=== PATIENT | male | born 1970 | race Two or more races ===

== ENCOUNTER 2020-03-23 18:40 | Inpatient (IN) | payer OTHER ==
[~2020-03-23] VITALS: Ht 188 cm; Wt 92.0 kg
[2020-03-23 19:33] VITALS: BP 138/92
[2020-03-23] MEDS: HYDROmorphone 2 MG/ML VIAL IV PRN (19:48)
[2020-03-23] MEDS: IV NORMAL SALINE 1000ML BAG 1,000 ML IV SCH (20:00)
[2020-03-23] MEDS: PANTOPRAZOLE IV PUSH 40 MG VIAL. IVP SCH (20:01)
[2020-03-23] MEDS: PIPERACILLIN/TAZOBACTAM 3.375 GM in IV NORMAL SALINE 50ML 50 ML IV SCH (20:02)
[2020-03-23] MEDS: DOCUSATE SODIUM 100 MG CAPSULE. PO SCH (21:00)
[2020-03-23 22:02] VITALS: BP 134/75
[2020-03-24] MEDS: HYDROmorphone 2 MG/ML VIAL IV PRN ×7 (00:22→23:07)
[2020-03-24] MEDS: PIPERACILLIN/TAZOBACTAM 3.375 GM in IV NORMAL SALINE 50ML 50 ML IV SCH ×4 (00:26→19:02)
[2020-03-24 02:05] VITALS: BP 138/76
[2020-03-24] MEDS: IV NORMAL SALINE 1000ML BAG 1,000 ML IV SCH (05:34)
[2020-03-24 06:04] LABS: BASO % 0 % (0-3); EOS # 0.1 x10^3/uL (0.0-0.7); EOS % 1 % (0-3); HEMATOCRIT 35.8 % (39.0-53.0); HEMOGLOBIN 12.3 g/dL (13.0-17.5); LYMPH # 0.7 x10^3/uL (1.0-4.8); LYMPH % 6 % (24-48); MEAN CORPUSCULAR HEMOGLOBIN 32 pg (25-35); MEAN CORPUSCULAR HGB CONC 34 g/dL (31-37); MEAN CORPUSCULAR VOLUME 93 fL (79-100); MONO # 1.3 x10^3/uL (0.0-1.1); MONO % 11 % (0-9); NEUT # 9.4 x10^3/uL (1.8-7.7); NEUT % 82 % (31-73); PLATELET COUNT 164 x10^3/uL (140-400); RED BLOOD COUNT 3.83 x10^6/uL (4.30-5.70); RED CELL DISTRIBUTION WIDTH 14.2 % (11.5-14.5); WHITE BLOOD COUNT 11.4 x10^3/uL (4.0-11.0)
[2020-03-24 06:08] LABS: PROTHROMBIN TIME PATIENT 19.1 SEC (11.7-14.0)
[2020-03-24 06:12] VITALS: BP 138/79
[2020-03-24 06:26] LABS: ALBUMIN 1.9 g/dL (3.4-5.0); ALBUMIN/GLOBULIN RATIO 0.5 (1.0-1.7); CALCIUM 7.8 mg/dL (8.5-10.1); CREATININE 1.1 mg/dL (0.7-1.3); GFR 71.1; POTASSIUM 3.2 mmol/L (3.5-5.1); TOTAL BILIRUBIN 1.3 mg/dL (0.2-1.0); TOTAL PROTEIN 5.5 g/dL (6.4-8.2)
[2020-03-24] MEDS: POLYETHYLENE GLYCOL 3350 17 GM PACKET. PO SCH (09:00)
[2020-03-24] MEDS: DOCUSATE SODIUM 100 MG CAPSULE. PO SCH ×2 (09:00→21:32)
--- NOTE | 2020-03-24 09:24 | NUR ---
SS following for discharge planning. SS reviewed pt chart and discussed with pt RN. Pt is from home with spouse and is currently on room air. Pt on IV Zosyn. GI consulted. SS will continue to follow for discharge planning.
[2020-03-24] MEDS: PANTOPRAZOLE IV PUSH 40 MG VIAL. IVP SCH ×2 (09:48→19:01)
[2020-03-24] MEDS: POTASSIUM CL 40MEQ IN 0.9%NACL 1,000 ML IV SCH ×2 (09:49→21:33)
--- NOTE | 2020-03-24 09:57 | PDOC2 ---
ELMER CRAWFORD PAPER REWINDER OPERATOR 03/24/20 0957: CONSULT Date of Consult Date of Consult DATE: 03/24/20 TIME: 09:47 Reason for Consult Reason for Consult: gs pancreatitis Referring Physician Referring Physician: Dr Conley Identification/Chief Complaint Chief Complaint abdominal pain Source Source: Chart review, Patient History of Present Illness Reason for Visit: Over a week of abdominal pain, epigastric. Now radiating to back. Some nausea. No constipation, few small loose stools. No hx of pancreatitis, no hx of heavy alcohol use He does still report moderate pain to epigastric with radiation to his back. Repeat CT 03/22 prior to Tx from [facility] showed continued, slightly worse pancreatitis findings Past Medical History Past Medical History resolved acute Kidney Injury in Oct Cardiovascular: Hyperlipidemia Past Surgical History Past Surgical History: No pertinent history Family History Family History: Other (noncontributory to current illness ) Social History No ALCOHOL: none Drugs: None Lives: with Family Current Medications Current Medications Current Medications Sodium Chloride 1,000 ml @ 100 mls/hr Q10H IV Last administered on 03/24/20at 05:34; Start 03/23/20 at 20:00; Stop 03/24/20 at 09:13; Status DC Piperacillin Sod/ Tazobactam Sod 3.375 gm/Sodium Chloride 50 ml @ 100 mls/hr Q6HRS IV Last administered on 03/24/20at 05:33; Start 03/23/20 at 20:00 Docusate Sodium (Colace) 100 mg BID PO ; Start 03/23/20 at 21:00 Hydromorphone HCl (Dilaudid) 4 mg PRN Q3HRS PRN IV PAIN Last administered on 03/24/20at 07:36; Start 03/23/20 at 19:30 Ondansetron HCl (Zofran) 4 mg PRN Q4HRS PRN IVP NAUSEA/VOMITING; Start 03/23/20 at 19:30 Pantoprazole Sodium (PROTONIX VIAL for IV PUSH) 40 mg [id number] IVP Last administered on 03/23/20at 20:01; Start 03/23/20 at 20:00 Polyethylene Glycol (miraLAX PACKET) 17 gm DAILY PO ; Start 03/24/20 at 09:00 Potassium Chloride/Sodium Chloride 1,000 ml @ 100 mls/hr Q10H IV ; Start 03/24/20 at 10:00 Phytonadione (Vitamin K Ampule) 10 mg 1X ONCE SQ ; Start 03/24/20 at 10:00; Stop 03/24/20 at 10:01 Allergies Allergies: Coded Allergies: No Known Drug Allergies (Unverified , 03/23/20) ROS General: No: Chills, Other (fevers ) PSYCHOLOGICAL ROS: No: Anxiety, Depression Eyes: No Blurry vision, No Decreased vision HEENT: No: Heacaches, Sore Throat Hematological and Lymphatic: No: Bleeding Problems, Blood Clots Respiratory: No: Cough, Shortness of breath Cardiovascular: No Chest Pain, No Palpitations Gastrointestinal: Yes Other (see hpi) Genitourinary: No Dysuria, No Hematuria Musculoskeletal: No Joint Pain, No Muscle Pain Neurological: No Impaired Coord/balance, No Numbness/Tingling Skin: No Pruritus, No Rash Physical Exam General: Alert, Oriented X3, Cooperative HEENT: Atraumatic, PERRLA Lungs: Clear to auscultation, Normal air movement Heart: Regular rate, Normal S1, Normal S2 Abdomen: Soft, Other (ttp epigastric) Extremities: No clubbing, No cyanosis Skin: No rashes, No breakdown Neuro: Normal gait, Normal speech Psych/Mental Status: Mental status NL, Mood NL MUSCULOSKELETAL: No deformity, No swelling Vitals VITALS Vital Signs Date Time Temp Pulse Resp B/P (MAP) Pulse Ox O2 Delivery O2 Flow Rate FiO2 03/24/20 08:39 91 Room Air 03/24/20 06:12 99.0 95 20 138/79 (98) 99.0 Labs Labs Laboratory Tests Test 03/24/20 04:25 White Blood Count 11.4 x10^3/uL (4.0-11.0) Red Blood Count 3.83 x10^6/uL (4.30-5.70) Hemoglobin 12.3 g/dL (13.0-17.5) Hematocrit 35.8 % (39.0-53.0) Mean Corpuscular Volume 93 fL (79-100) Mean Corpuscular Hemoglobin 32 pg (25-35) Mean Corpuscular Hemoglobin Concent 34 g/dL (31-37) Red Cell Distribution Width 14.2 % (11.5-14.5) Platelet Count 164 x10^3/uL (140-400) Neutrophils (%) (Auto) 82 % (31-73) Lymphocytes (%) (Auto) 6 % (24-48) Monocytes (%) (Auto) 11 % (0-9) Eosinophils (%) (Auto) 1 % (0-3) Basophils (%) (Auto) 0 % (0-3) Neutrophils # (Auto) 9.4 x10^3/uL (1.8-7.7) Lymphocytes # (Auto) 0.7 x10^3/uL (1.0-4.8) Monocytes # (Auto) 1.3 x10^3/uL (0.0-1.1) Eosinophils # (Auto) 0.1 x10^3/uL (0.0-0.7) Basophils # (Auto) 0.0 x10^3/uL (0.0-0.2) Prothrombin Time 19.1 SEC (11.7-14.0) Prothromb Time International Ratio 1.6 (0.8-1.1) Sodium Level 136 mmol/L (136-145) Potassium Level 3.2 mmol/L (3.5-5.1) Chloride Level 102 mmol/L (98-107) Carbon Dioxide Level 29 mmol/L (21-32) Anion Gap 5 (6-14) Blood Urea Nitrogen 12 mg/dL (8-26) Creatinine 1.1 mg/dL (0.7-1.3) Estimated GFR (Cockcroft-Gault) 71.1 BUN/Creatinine Ratio 11 (6-20) Glucose Level 90 mg/dL (70-99) Calcium Level 7.8 mg/dL (8.5-10.1) Total Bilirubin 1.3 mg/dL (0.2-1.0) Aspartate Amino Transf (AST/SGOT) 25 U/L (15-37) Alanine Aminotransferase (ALT/SGPT) 22 U/L (16-63) Alkaline Phosphatase 67 U/L (46-116) Total Protein 5.5 g/dL (6.4-8.2) Albumin 1.9 g/dL (3.4-5.0) Albumin/Globulin Ratio 0.5 (1.0-1.7) Laboratory Tests Test 03/24/20 04:25 White Blood Count 11.4 x10^3/uL (4.0-11.0) Red Blood Count 3.83 x10^6/uL (4.30-5.70) Hemoglobin 12.3 g/dL (13.0-17.5) Hematocrit 35.8 % (39.0-53.0) Mean Corpuscular Volume 93 fL (79-100) Mean Corpuscular Hemoglobin 32 pg (25-35) Mean Corpuscular Hemoglobin Concent 34 g/dL (31-37) Red Cell Distribution Width 14.2 % (11.5-14.5) Platelet Count 164 x10^3/uL (140-400) Neutrophils (%) (Auto) 82 % (31-73) Lymphocytes (%) (Auto) 6 % (24-48) Monocytes (%) (Auto) 11 % (0-9) Eosinophils (%) (Auto) 1 % (0-3) Basophils (%) (Auto) 0 % (0-3) Neutrophils # (Auto) 9.4 x10^3/uL (1.8-7.7) Lymphocytes # (Auto) 0.7 x10^3/uL (1.0-4.8) Monocytes # (Auto) 1.3 x10^3/uL (0.0-1.1) Eosinophils # (Auto) 0.1 x10^3/uL (0.0-0.7) Basophils # (Auto) 0.0 x10^3/uL (0.0-0.2) Prothrombin Time 19.1 SEC (11.7-14.0) Prothromb Time International Ratio 1.6 (0.8-1.1) Sodium Level 136 mmol/L (136-145) Potassium Level 3.2 mmol/L (3.5-5.1) Chloride Level 102 mmol/L (98-107) Carbon Dioxide Level 29 mmol/L (21-32) Anion Gap 5 (6-14) Blood Urea Nitrogen 12 mg/dL (8-26) Creatinine 1.1 mg/dL (0.7-1.3) Estimated GFR (Cockcroft-Gault) 71.1 BUN/Creatinine Ratio 11 (6-20) Glucose Level 90 mg/dL (70-99) Calcium Level 7.8 mg/dL (8.5-10.1) Total Bilirubin 1.3 mg/dL (0.2-1.0) Aspartate Amino Transf (AST/SGOT) 25 U/L (15-37) Alanine Aminotransferase (ALT/SGPT) 22 U/L (16-63) Alkaline Phosphatase 67 U/L (46-116) Total Protein 5.5 g/dL (6.4-8.2) Albumin 1.9 g/dL (3.4-5.0) Albumin/Globulin Ratio 0.5 (1.0-1.7) Assessment/Plan Assessment/Plan gs pancreatitis INR 1.6 lipase improved, however repeat CT with worsening pancreatitis findings will have Dr Hicks review FABI HICKS MD 03/24/20 1415: CONSULT Assessment/Plan Assessment/Plan Patient seen and examined by me seems somewhat uncomfortable. Still describes a fair amount of pain his abdomen is soft but is tender to palpation epigastrium. INR is 1.6. Gallstone pancreatitis at this point I believe his pancreatitis has resolved to the point where we can proceed with cholecystectomy continue bowel rest. Patient did receive vitamin K recheck labs in the a.m. agree with Fly assessment and plan ELMER CRAWFORD APRN Mar 24, 2020 09:57 FABI HICKS MD Mar 24, 2020 14:15
[2020-03-24] MEDS ORDERED: PHYTONADIONE 10 MG/ML AMPUL. SQ ONE (10:00)
--- NOTE | 2020-03-24 10:09 | HP ---
ADMIT DATE: 03/23/2020 HISTORY OF PRESENT ILLNESS: The patient is a 49-year-old male patient who was admitted to [facility] Emergency Room with severe abdominal pain located centrally in his umbilical area and with the associated nausea and vomiting. He was diagnosed with acute pancreatitis. His serum lipase was up to more than 40,000. He has also had initial lactic acidosis, mildly impaired kidney function as well as mild leukocytosis. We started him on IV fluid, pain medication, antiemetic and kept n.p.o. and we will monitor his lab work closely. His white cell count has risen further to 20,000 and they did start him on Zosyn; however, eventually his white cell count came down to 10,000. His serum lipase came down from 40,000 to 178 yesterday [address] his initial CT scan of the abdomen and pelvis with IV contrast showed that he has large quantity of peripancreatic fluid. No loculated collection. Edematous appearance of the pancreas. Findings compatible with acute pancreatitis and no biliary dilatation. He has also enlarged prostate, bilateral undescended testicles and small hiatal hernia. The ultrasound showed that the gallstones are visualized. The portion of the gallbladder wall is prominent in thickness measuring up to 6 mm and we did actually HIDA scan, which basically showed that the patient's cystic duct and common bile duct are patent. Negative for acute cholecystitis; however, gallbladder ejection fraction is abnormal, measuring only 23%. Findings may indicate gallbladder dyskinesia or chronic cholecystitis. In consultation with Dr. Pierre, a decision was made to transfer him to for laparoscopic cholecystectomy. PAST MEDICAL HISTORY: Significant for episode of acute kidney injury that has resolved spontaneously according to him. He also has hyperlipidemia. PAST SURGICAL HISTORY: Unremarkable. ALLERGIES: He has no known drug allergies. MEDICATIONS: On arrival to [facility], he was on no medication by prescription or [id number]. However, he was transferred to to continue on IV hydromorphone, IV ondansetron, Zosyn at 3.375 grams IV q. 6 hourly. He was also on normal saline at 100 mL per hour together with Colace and MiraLax. FAMILY HISTORY: He has 3 living sisters, all older, but does not keep in contact with them. His one older brother at age of 18 as he was choked. He had 2 brothers, one of overdose and the other one also was , but does not know the cause of his . His father at the age of 73 because of myocardial infarction. Mother at age of 46 because of brain aneurysm. SOCIAL HISTORY: He is . He has 1 son and 1 daughter. He quit smoking in his early 20s. He does not drink alcohol or use recreational drugs. 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 PHYSICAL EXAMINATION: GENERAL: On examining him today, he looked well and was clearly in no apparent respiratory distress. No pallor, jaundice, cyanosis or thyromegaly. No jugular venous distention. No lower limb edema. VITAL SIGNS: His heart rate was 95, blood pressure was 138/79, temperature was 99, respiratory rate was 20, and oxygen saturation was 91%. HEAD, EYES, EARS, NOSE AND THROAT: Normocephalic, atraumatic. NECK: Supple. HEART: Showed normal first and second heart sounds. No gallop, rub or murmur. CHEST: Clear to auscultation. No crepitation or rhonchi. ABDOMEN: Distended, soft. Tenderness mostly in the epigastric and right upper quadrant. No guarding or rigidity. No organomegaly. All hernial orifice intact. Bowel sounds normal. NEUROLOGIC: He is awake, alert, responding appropriately. All cranial nerves intact. EXTREMITIES: He moves extremities without difficulty. LABORATORY DATA: His lab work showed a white cell count of 11,400, hemoglobin 12.3, hematocrit 35.8, MCV 93, and platelet count of 164,000 with normal manual differential. His chemistry showed a serum sodium 136, potassium 3.2, chloride 102, bicarbonate 29, anion gap of 5, BUN 12, creatinine 1.1, estimated GFR was 71 mL per minute. His glucose was 90, calcium was 7.8. Total bilirubin 1.3. AST, ALT, alkaline phosphatase were normal. His total protein was 5.5, albumin was 1.9. His prothrombin time was 19.1, INR 1.6. His COVID-19 was negative, it was done yesterday at [facility]. ASSESSMENT AND PLAN: In summary, acute pancreatitis has resolved. His serum lipase came down from 40,000 to 178, has evidence on HIDA scan of biliary dyskinesia and/or chronic cholecystitis with gallstones; and therefore, the patient was transferred to and we have consulted the surgical team as per discussion with Dr. Pierre and he recommended that the patient should have his gallbladder removed before they discharge home. MITA YEE MD DR: CAROLA/geno JOB#: [id number] / [id number]
[2020-03-24 11:00] VITALS: BP 144/83
--- NOTE | 2020-03-24 11:52 | PDOC2 ---
GI CONSULT Reason For Consult: acute pancreatitis w/ abnormal INR HPI: HPI: Pleasant 49 y/o male transferred from [facility]. Ill since last Monday - awoke w/ sharp lower abdominal pain which became progressively worse and spread upwards and to both sides, then eventually to lower back. Vomited a small amount x 1 @ [facility].. Labs noted leukocytosis, mildly elevated bilirubin, AST and ALT, and lipase >40,000. Triglycerides WNL. CT A/P 03/19: large quantity peripancreatic fluid, edematous pancreas, prostatomegaly, bilateral undescended testicles, small hiatal hernia, moderate q uantity of stool. RUQ US 03/19: fluid adjacent to pancreas w/ PD dilation (2-3mm), gallstones, portions of GB wall prominent in thickness. HIDA 03/20: patent cystic duct, EF 23%. CT A/P 03/22: new small pleural effusions, mildly worse diffuse edema of pancreas and surrounding inflammation and fluid, moderately worse mild ascites. WBC and LFTs have improved. INR noted at 1.6, given vit K. COVID-19 negative on 03/23 w/ plans for cholecystectomy later today w/ Dr. Pierre. Occasionally will have a week with acid reflux, takes Tums PRN. No dysphagia. No chronic n/v or abd pain. No diarrhea or constipation (though stool this morning was "a quarter cup of pudding"). No hematemesis, hematochezia, or melena. No weight loss. No previous EGD or colonoscopy. No GB, liver, pancreas, or PUD history. No NSAIDs. On IV PPI. PMH: PMH: PRECIOUS, HLD (he denies to me), superficial wounds on abdomen from time in (no surgery) FH: Family History: No pertinent hx (denies GI cancers, h/o pancreatitis or liver disease), Other (VA, brain aneurysm) Social History: Smoke: Quit ALCOHOL: none Drugs: None ROS: GEN: Denies fevers, chills, sweats HEENT: Denies blurred vision, sore throat CV: Denies chest pain RESP: Denies shortness of air, cough GI: Per HPI : Denies hematuria, dysuria ENDO: Denies weight changes NEURO: Denies confusion, dizziness MSK: Denies weakness, joint pain/swelling SKIN: Denies jaundice, pruritus Vitals: Vitals: Vital Signs Date Time Temp Pulse Resp B/P (MAP) Pulse Ox O2 Delivery O2 Flow Rate FiO2 03/24/20 08:39 91 Room Air 03/24/20 06:12 99.0 95 20 138/79 (98) 99.0 Labs: Labs: Laboratory Tests Test 03/24/20 04:25 White Blood Count 11.4 x10^3/uL (4.0-11.0) Red Blood Count 3.83 x10^6/uL (4.30-5.70) Hemoglobin 12.3 g/dL (13.0-17.5) Hematocrit 35.8 % (39.0-53.0) Mean Corpuscular Volume 93 fL (79-100) Mean Corpuscular Hemoglobin 32 pg (25-35) Mean Corpuscular Hemoglobin Concent 34 g/dL (31-37) Red Cell Distribution Width 14.2 % (11.5-14.5) Platelet Count 164 x10^3/uL (140-400) Neutrophils (%) (Auto) 82 % (31-73) Lymphocytes (%) (Auto) 6 % (24-48) Monocytes (%) (Auto) 11 % (0-9) Eosinophils (%) (Auto) 1 % (0-3) Basophils (%) (Auto) 0 % (0-3) Neutrophils # (Auto) 9.4 x10^3/uL (1.8-7.7) Lymphocytes # (Auto) 0.7 x10^3/uL (1.0-4.8) Monocytes # (Auto) 1.3 x10^3/uL (0.0-1.1) Eosinophils # (Auto) 0.1 x10^3/uL (0.0-0.7) Basophils # (Auto) 0.0 x10^3/uL (0.0-0.2) Prothrombin Time 19.1 SEC (11.7-14.0) Prothromb Time International Ratio 1.6 (0.8-1.1) Sodium Level 136 mmol/L (136-145) Potassium Level 3.2 mmol/L (3.5-5.1) Chloride Level 102 mmol/L (98-107) Carbon Dioxide Level 29 mmol/L (21-32) Anion Gap 5 (6-14) Blood Urea Nitrogen 12 mg/dL (8-26) Creatinine 1.1 mg/dL (0.7-1.3) Estimated GFR (Cockcroft-Gault) 71.1 BUN/Creatinine Ratio 11 (6-20) Glucose Level 90 mg/dL (70-99) Calcium Level 7.8 mg/dL (8.5-10.1) Total Bilirubin 1.3 mg/dL (0.2-1.0) Aspartate Amino Transf (AST/SGOT) 25 U/L (15-37) Alanine Aminotransferase (ALT/SGPT) 22 U/L (16-63) Alkaline Phosphatase 67 U/L (46-116) Total Protein 5.5 g/dL (6.4-8.2) Albumin 1.9 g/dL (3.4-5.0) Albumin/Globulin Ratio 0.5 (1.0-1.7) Allergies: Coded Allergies: No Known Drug Allergies (Unverified , 03/23/20) Medications: Current Medications Medications (Trade) Dose Ordered Sig/Jose Eduardo Route PRN Reason Start Time Stop Time Status Last Admin Dose Admin Sodium Chloride 1,000 ml @ 100 mls/hr Q10H IV 03/23/20 20:00 03/24/20 09:13 DC 03/24/20 05:34 Piperacillin Sod/ Tazobactam Sod 3.375 gm/Sodium Chloride 50 ml @ 100 mls/hr Q6HRS IV 03/23/20 20:00 03/24/20 05:33 Hydromorphone HCl (Dilaudid) 4 mg PRN Q3HRS PRN IV PAIN 03/23/20 19:30 03/24/20 07:36 Pantoprazole Sodium (PROTONIX VIAL for IV PUSH) 40 mg [id number] IVP 03/23/20 20:00 03/24/20 09:48 Potassium Chloride/Sodium Chloride 1,000 ml @ 100 mls/hr Q10H IV 03/24/20 10:00 03/24/20 09:49 Phytonadione (Vitamin K Ampule) 10 mg 1X ONCE SQ 03/24/20 10:00 03/24/20 10:01 DC 03/24/20 09:50 Imaging: Imaging: Per HPI. PE: GEN: uncomfortable HEENT: Atraumatic, PERRL LUNGS: clear anteriorly HEART: RRR ABD: a few groaning bowel sounds, tender epigastrium to BUQ EXTREMITY: No edema SKIN: No rashes, no jaundice NEURO/PSYCH: A & O 3 A/P: A/P: Gallstone pancreatitis - imaging as above, interval CT w/ worsening inflammation Leukocytosis, elevated LFTs - better Coagulopathy Intermittent acid reflux CRC screen - average risk -- Will review mildly elevated INR w/ Dr. Pardo. Plans for cholecystectomy today. Agree w/ PPI. Outpt EGD and colonoscopy later this year. JEREMIAH LOPEZ Mar 24, 2020 11:52
[2020-03-24 19:15] VITALS: BP 136/80
[2020-03-24] MEDS: ONDANSETRON PF 4 MG/2 ML VIAL. IVP PRN (21:32)
[2020-03-24 23:00] VITALS: BP 129/76
[2020-03-25] MEDS: PIPERACILLIN/TAZOBACTAM 3.375 GM in IV NORMAL SALINE 50ML 50 ML IV SCH ×4 (00:20→17:09)
[2020-03-25 03:35] VITALS: BP 135/78
[2020-03-25 05:17] LABS: PROTHROMBIN TIME PATIENT 18.1 SEC (11.7-14.0)
[2020-03-25 05:30] LABS: ALBUMIN 2.2 g/dL (3.4-5.0); CREATININE 1.2 mg/dL (0.7-1.3); DIRECT BILIRUBIN 0.5 mg/dL (0.0-0.2); GFR 64.4; POTASSIUM 3.3 mmol/L (3.5-5.1); TOTAL BILIRUBIN 1.4 mg/dL (0.2-1.0); TOTAL PROTEIN 6.4 g/dL (6.4-8.2)
[2020-03-25] MEDS: POTASSIUM CL 40MEQ IN 0.9%NACL 1,000 ML IV SCH ×2 (06:00→21:36)
[2020-03-25] MEDS: HYDROmorphone 2 MG/ML VIAL IV PRN ×5 (06:22→20:15)
[2020-03-25 07:00] VITALS: BP 135/83
[2020-03-25] MEDS ORDERED: MORPHINE SULFATE 2 MG/ML VIAL. IV PRN (07:00)
[2020-03-25] MEDS ORDERED: ONDANSETRON PF 4 MG/2 ML VIAL. IV PRN (07:00)
[2020-03-25] MEDS ORDERED: fentaNYL PF VIAL 100 MCG/2 ML VIAL IV PRN ×2 (07:00)
[2020-03-25] MEDS ORDERED: LIDOCAINE 1% PF 2 ML VIAL. ID PRN (07:00)
[2020-03-25] MEDS ORDERED: PROCHLORPERAZINE 10 MG/2 ML VIAL. IV PRN (07:00)
[2020-03-25] MEDS ORDERED: IV RINGERS,LACTATED 1000ML 1,000 ML IV SCH (07:00)
[2020-03-25] MEDS ORDERED: HYDROmorphone 2 MG/ML VIAL IV PRN (07:00)
[2020-03-25] MEDS: POLYETHYLENE GLYCOL 3350 17 GM PACKET. PO SCH (09:00)
[2020-03-25] MEDS: DOCUSATE SODIUM 100 MG CAPSULE. PO SCH ×2 (09:00→20:15)
[2020-03-25] MEDS: PANTOPRAZOLE IV PUSH 40 MG VIAL. IVP SCH ×2 (09:27→17:07)
--- NOTE | 2020-03-25 09:29 | PDOC ---
ELMER CRAWFORD FURNITURE SALESPERSON 03/25/20 0929: SURGICAL PROGRESS NOTE Subjective pain about the same + nausea Vital Signs Vital Signs Date Time Temp Pulse Resp B/P (MAP) Pulse Ox O2 Delivery O2 Flow Rate FiO2 03/25/20 07:48 94 Nasal Cannula 2.0 03/25/20 07:00 98.8 79 18 135/83 (100) 98.8 I&O Intake and Output 03/25/20 07:00 Intake Total 400 ml Balance 400 ml Intake Oral 400 ml # Bowel Movements 2 General: Alert, Oriented X3, Cooperative Abdomen: Soft, Other (ttp epigastric) Labs Laboratory Tests Test 03/24/20 04:25 03/25/20 04:12 White Blood Count 11.4 x10^3/uL (4.0-11.0) Red Blood Count 3.83 x10^6/uL (4.30-5.70) Hemoglobin 12.3 g/dL (13.0-17.5) Hematocrit 35.8 % (39.0-53.0) Mean Corpuscular Volume 93 fL (79-100) Mean Corpuscular Hemoglobin 32 pg (25-35) Mean Corpuscular Hemoglobin Concent 34 g/dL (31-37) Red Cell Distribution Width 14.2 % (11.5-14.5) Platelet Count 164 x10^3/uL (140-400) Neutrophils (%) (Auto) 82 % (31-73) Lymphocytes (%) (Auto) 6 % (24-48) Monocytes (%) (Auto) 11 % (0-9) Eosinophils (%) (Auto) 1 % (0-3) Basophils (%) (Auto) 0 % (0-3) Neutrophils # (Auto) 9.4 x10^3/uL (1.8-7.7) Lymphocytes # (Auto) 0.7 x10^3/uL (1.0-4.8) Monocytes # (Auto) 1.3 x10^3/uL (0.0-1.1) Eosinophils # (Auto) 0.1 x10^3/uL (0.0-0.7) Basophils # (Auto) 0.0 x10^3/uL (0.0-0.2) Prothrombin Time 19.1 SEC (11.7-14.0) 18.1 SEC (11.7-14.0) Prothromb Time International Ratio 1.6 (0.8-1.1) 1.5 (0.8-1.1) Sodium Level 136 mmol/L (136-145) 137 mmol/L (136-145) Potassium Level 3.2 mmol/L (3.5-5.1) 3.3 mmol/L (3.5-5.1) Chloride Level 102 mmol/L (98-107) 101 mmol/L (98-107) Carbon Dioxide Level 29 mmol/L (21-32) 30 mmol/L (21-32) Anion Gap 5 (6-14) 6 (6-14) Blood Urea Nitrogen 12 mg/dL (8-26) 9 mg/dL (8-26) Creatinine 1.1 mg/dL (0.7-1.3) 1.2 mg/dL (0.7-1.3) Estimated GFR (Cockcroft-Gault) 71.1 64.4 BUN/Creatinine Ratio 11 (6-20) Glucose Level 90 mg/dL (70-99) 102 mg/dL (70-99) Calcium Level 7.8 mg/dL (8.5-10.1) 8.0 mg/dL (8.5-10.1) Total Bilirubin 1.3 mg/dL (0.2-1.0) 1.4 mg/dL (0.2-1.0) Aspartate Amino Transf (AST/SGOT) 25 U/L (15-37) 22 U/L (15-37) Alanine Aminotransferase (ALT/SGPT) 22 U/L (16-63) 27 U/L (16-63) Alkaline Phosphatase 67 U/L (46-116) 78 U/L (46-116) Total Protein 5.5 g/dL (6.4-8.2) 6.4 g/dL (6.4-8.2) Albumin 1.9 g/dL (3.4-5.0) 2.2 g/dL (3.4-5.0) Albumin/Globulin Ratio 0.5 (1.0-1.7) Direct Bilirubin 0.5 mg/dL (0.0-0.2) Amylase Level 54 U/L (25-115) Lipase 109 U/L (73-393) Laboratory Tests Test 03/25/20 04:12 Prothrombin Time 18.1 SEC (11.7-14.0) Prothromb Time International Ratio 1.5 (0.8-1.1) Sodium Level 137 mmol/L (136-145) Potassium Level 3.3 mmol/L (3.5-5.1) Chloride Level 101 mmol/L (98-107) Carbon Dioxide Level 30 mmol/L (21-32) Anion Gap 6 (6-14) Blood Urea Nitrogen 9 mg/dL (8-26) Creatinine 1.2 mg/dL (0.7-1.3) Estimated GFR (Cockcroft-Gault) 64.4 Glucose Level 102 mg/dL (70-99) Calcium Level 8.0 mg/dL (8.5-10.1) Total Bilirubin 1.4 mg/dL (0.2-1.0) Direct Bilirubin 0.5 mg/dL (0.0-0.2) Aspartate Amino Transf (AST/SGOT) 22 U/L (15-37) Alanine Aminotransferase (ALT/SGPT) 27 U/L (16-63) Alkaline Phosphatase 78 U/L (46-116) Total Protein 6.4 g/dL (6.4-8.2) Albumin 2.2 g/dL (3.4-5.0) Amylase Level 54 U/L (25-115) Lipase 109 U/L (73-393) Assessment/Plan gs pancreatitis INR 1.5-- needs to be 1-- will give another dose of Vit k, recheck INR in AM--tentative plans for OR tomorrow Justicifation of Admission Dx: Justifications for Admission: Justification of Admission Dx: Yes Comments: gallstone pancreatitis FABI HICKS MD 03/25/20 1241: SURGICAL PROGRESS NOTE Assessment/Plan Patient seen and examined by me currently resting comfortably in bed does descr nani some epigastric pain about the same as yesterday. INR noted at 1.5 will receive more vitamin K today overall liver enzymes improving. If INR is normal tomorrow we will plan on laparoscopic cholecystectomy. Agree with Fly assessment plan ELMER CRAWFORD APRN Mar 25, 2020 09:29 FABI HICKS MD Mar 25, 2020 12:41
[2020-03-25] MEDS ORDERED: PHYTONADIONE 10 MG/ML AMPUL. SQ ONE (09:30)
[2020-03-25] MEDS: ONDANSETRON PF 4 MG/2 ML VIAL. IVP PRN (10:12)
--- NOTE | 2020-03-25 10:37 | NUR ---
SS following up with discharge planning. SS reviewed pt chart and discussed with pt RN. Pt is currently requiring oxygen and on IV Zosyn. Pt COVID19 negative from [facility]. Pt tentatively scheduled for surgery tomorrow, 03/26/2020, for gall bladder. SS will continue to follow for discharge planning.
--- NOTE | 2020-03-25 10:48 | PN ---
DATE: 03/25/2020 SUBJECTIVE: The patient is resting, slightly propped up in bed, in no apparent distress, continued to complain of pain in his abdomen, mostly in epigastric and right upper quadrant, radiating to the back. However, all his lab works seemed to be well within normal range except perhaps his potassium is still not completely replenished. His INR still slightly elevated at 18.1 and INR was 1.5. PHYSICAL EXAMINATION: GENERAL: When I examined him, he looked well and was clearly in no apparent respiratory distress. VITAL SIGNS: Heart rate was 79, blood pressure 135/83, temperature 98.8, respiratory rate was 18 and oxygen saturation was 94% on 2 liters of oxygen. HEAD, EYES, EARS, NOSE AND THROAT: Showed normocephalic, atraumatic. NECK: Supple. CARDIAC: Normal first and second heart sounds. No gallop, rub or murmur. CHEST: Shows central trachea, equal bilateral expansion, air entry, vesicular sounds. No crepitation or rhonchi. ABDOMEN: Soft. Tenderness mostly in the epigastric area. There is no guarding or rigidity. No organomegaly. All hernial orifice intact. Bowel sounds normal. NEUROLOGIC: He is grossly intact. LABORATORY WORK: As of this morning showed a serum sodium of 137, potassium of 3.3, chloride 101, bicarbonate 30, anion gap of 6, BUN 9, creatinine 1.2, estimated GFR was 64 mL per minute. His glucose is 102, calcium was 8. Total bilirubin was 1.4. AST, ALT, alkaline phosphatase were normal. Total protein was 6.4, albumin 2.2. His amylase and lipase were normal. His prothrombin time was 18.1. INR 1.5. ASSESSMENT: 1. Acute pancreatitis, most likely due to gallstones, resolved. His serum lipase has normalized, now 109. 2. Chronic cholecystitis/biliary dyskinesia. 3. Prolonged prothrombin time, for which he received 10 mg of vitamin K yesterday and he is receiving another one today. Hopefully, once his INR normalized, he will be considered for laparoscopic cholecystectomy. MITA YEE MD DR: CAROLA/geno JOB#: [id number] / [id number]
[2020-03-25 11:00] VITALS: BP 145/87
--- NOTE | 2020-03-25 11:19 | PDOC ---
G I PROGRESS NOTE Subjective Maybe marginally less pain. Objective Looks some better overall. Physical Exam Lungs clear. RRR Abdomen soft with epigastric tenderness. Review of Relevant I have reviewed the following items lucretia (where applicable) has been applied. Labs Laboratory Tests Test 03/24/20 04:25 03/25/20 04:12 White Blood Count 11.4 x10^3/uL (4.0-11.0) Red Blood Count 3.83 x10^6/uL (4.30-5.70) Hemoglobin 12.3 g/dL (13.0-17.5) Hematocrit 35.8 % (39.0-53.0) Mean Corpuscular Volume 93 fL (79-100) Mean Corpuscular Hemoglobin 32 pg (25-35) Mean Corpuscular Hemoglobin Concent 34 g/dL (31-37) Red Cell Distribution Width 14.2 % (11.5-14.5) Platelet Count 164 x10^3/uL (140-400) Neutrophils (%) (Auto) 82 % (31-73) Lymphocytes (%) (Auto) 6 % (24-48) Monocytes (%) (Auto) 11 % (0-9) Eosinophils (%) (Auto) 1 % (0-3) Basophils (%) (Auto) 0 % (0-3) Neutrophils # (Auto) 9.4 x10^3/uL (1.8-7.7) Lymphocytes # (Auto) 0.7 x10^3/uL (1.0-4.8) Monocytes # (Auto) 1.3 x10^3/uL (0.0-1.1) Eosinophils # (Auto) 0.1 x10^3/uL (0.0-0.7) Basophils # (Auto) 0.0 x10^3/uL (0.0-0.2) Prothrombin Time 19.1 SEC (11.7-14.0) 18.1 SEC (11.7-14.0) Prothromb Time International Ratio 1.6 (0.8-1.1) 1.5 (0.8-1.1) Sodium Level 136 mmol/L (136-145) 137 mmol/L (136-145) Potassium Level 3.2 mmol/L (3.5-5.1) 3.3 mmol/L (3.5-5.1) Chloride Level 102 mmol/L (98-107) 101 mmol/L (98-107) Carbon Dioxide Level 29 mmol/L (21-32) 30 mmol/L (21-32) Anion Gap 5 (6-14) 6 (6-14) Blood Urea Nitrogen 12 mg/dL (8-26) 9 mg/dL (8-26) Creatinine 1.1 mg/dL (0.7-1.3) 1.2 mg/dL (0.7-1.3) Estimated GFR (Cockcroft-Gault) 71.1 64.4 BUN/Creatinine Ratio 11 (6-20) Glucose Level 90 mg/dL (70-99) 102 mg/dL (70-99) Calcium Level 7.8 mg/dL (8.5-10.1) 8.0 mg/dL (8.5-10.1) Total Bilirubin 1.3 mg/dL (0.2-1.0) 1.4 mg/dL (0.2-1.0) Aspartate Amino Transf (AST/SGOT) 25 U/L (15-37) 22 U/L (15-37) Alanine Aminotransferase (ALT/SGPT) 22 U/L (16-63) 27 U/L (16-63) Alkaline Phosphatase 67 U/L (46-116) 78 U/L (46-116) Total Protein 5.5 g/dL (6.4-8.2) 6.4 g/dL (6.4-8.2) Albumin 1.9 g/dL (3.4-5.0) 2.2 g/dL (3.4-5.0) Albumin/Globulin Ratio 0.5 (1.0-1.7) Direct Bilirubin 0.5 mg/dL (0.0-0.2) Amylase Level 54 U/L (25-115) Lipase 109 U/L (73-393) Laboratory Tests Test 03/25/20 04:12 Prothrombin Time 18.1 SEC (11.7-14.0) Prothromb Time International Ratio 1.5 (0.8-1.1) Sodium Level 137 mmol/L (136-145) Potassium Level 3.3 mmol/L (3.5-5.1) Chloride Level 101 mmol/L (98-107) Carbon Dioxide Level 30 mmol/L (21-32) Anion Gap 6 (6-14) Blood Urea Nitrogen 9 mg/dL (8-26) Creatinine 1.2 mg/dL (0.7-1.3) Estimated GFR (Cockcroft-Gault) 64.4 Glucose Level 102 mg/dL (70-99) Calcium Level 8.0 mg/dL (8.5-10.1) Total Bilirubin 1.4 mg/dL (0.2-1.0) Direct Bilirubin 0.5 mg/dL (0.0-0.2) Aspartate Amino Transf (AST/SGOT) 22 U/L (15-37) Alanine Aminotransferase (ALT/SGPT) 27 U/L (16-63) Alkaline Phosphatase 78 U/L (46-116) Total Protein 6.4 g/dL (6.4-8.2) Albumin 2.2 g/dL (3.4-5.0) Amylase Level 54 U/L (25-115) Lipase 109 U/L (73-393) INR about the same; not really too bad. Vitals/I & O Vital Sign - Last 24 Hours 03/24/20 03/24/20 03/24/20 03/24/20 12:09 13:37 15:00 15:45 Pulse 98 B/P (MAP) Pulse Ox 91 91 95 91 O2 Delivery Room Air Room Air Room Air Room Air 03/24/20 03/24/20 03/24/20 03/24/20 17:54 19:03 19:15 19:33 Temp 99.7 99.7 Pulse 87 Resp 20 18 B/P (MAP) 136/80 (98) Pulse Ox 91 91 88 96 O2 Delivery Room Air Room Air Room Air Nasal Cannula O2 Flow Rate 2.0 03/24/20 03/24/20 03/24/20 03/24/20 20:00 20:34 23:00 23:07 Temp 98.2 98.2 Pulse 81 Resp 18 20 B/P (MAP) 129/76 (93) Pulse Ox 96 96 O2 Delivery Nasal Cannula Nasal Cannula Room Air Room Air O2 Flow Rate 2.0 2.0 03/25/20 03/25/20 03/25/20 03/25/20 03:35 06:22 07:00 07:48 Temp 98.1 98.8 98.1 98.8 Pulse 80 79 Resp 18 20 18 B/P (MAP) 135/78 (97) 135/83 (100) Pulse Ox 94 92 94 O2 Delivery Room Air Nasal Cannula Room Air Nasal Cannula O2 Flow Rate 2.0 2.0 03/25/20 03/25/20 03/25/20 08:00 09:35 10:31 Pulse Ox 94 94 O2 Delivery Room Air Nasal Cannula Nasal Cannula O2 Flow Rate 2.0 2.0 Intake and Output 03/24/20 03/24/20 03/25/20 15:00 23:00 07:00 Intake Total 400 ml Balance 400 ml Assessment Biliary pancreatitis likely. Coagulopathy? Plan of Care Note INR with 1:1 mix unfortunately not done on site so of little help to order. If enough of a concern, consider heme opinion. Continue as now; shakeel when feasible. Justicifation of Admission Dx: Justifications for Admission: Justification of Admission Dx: Yes JOSEPH CRUZ MD Mar 25, 2020 11:19
[2020-03-25 15:00] VITALS: BP 140/88
[2020-03-25 19:00] VITALS: BP 134/85
[2020-03-25] MEDS: LACTOBACILLUS RHAMNOSUS GG 1 CAPSULE. PO SCH (20:14)
[2020-03-25 23:00] VITALS: BP 125/79
[2020-03-26] MEDS: HYDROmorphone 2 MG/ML VIAL IV PRN ×6 (00:16→20:38)
[2020-03-26] MEDS: PIPERACILLIN/TAZOBACTAM 3.375 GM in IV NORMAL SALINE 50ML 50 ML IV SCH ×5 (00:17→23:12)
[2020-03-26 02:45] VITALS: BP 122/78
[2020-03-26 04:38] LABS: HEMATOCRIT 33.4 % (39.0-53.0); HEMOGLOBIN 11.5 g/dL (13.0-17.5); RED BLOOD COUNT 3.59 x10^6/uL (4.30-5.70)
[2020-03-26 04:45] LABS: PROTHROMBIN TIME PATIENT 18.7 SEC (11.7-14.0)
[2020-03-26 05:10] LABS: CALCIUM 7.7 mg/dL (8.5-10.1); CREATININE 0.9 mg/dL (0.7-1.3); GFR 89.7; POTASSIUM 3.5 mmol/L (3.5-5.1)
[2020-03-26 07:00] VITALS: BP 137/84
[2020-03-26] MEDS ORDERED: IV RINGERS,LACTATED 1000ML 1,000 ML IV SCH (07:00)
[2020-03-26] MEDS: POLYETHYLENE GLYCOL 3350 17 GM PACKET. PO SCH (08:05)
[2020-03-26] MEDS: LACTOBACILLUS RHAMNOSUS GG 1 CAPSULE. PO SCH ×2 (08:06→20:36)
[2020-03-26] MEDS: DOCUSATE SODIUM 100 MG CAPSULE. PO SCH ×2 (08:06→20:36)
[2020-03-26] MEDS: PANTOPRAZOLE IV PUSH 40 MG VIAL. IVP SCH ×2 (08:07→16:14)
[2020-03-26] MEDS: POTASSIUM CL 40MEQ IN 0.9%NACL 1,000 ML IV SCH ×3 (08:18→20:59)
--- NOTE | 2020-03-26 09:56 | PN ---
DATE: 03/26/2020 SUBJECTIVE: The patient is resting, slightly propped up in bed, in no apparent respiratory distress. He continued to complain of pain that comes and goes. Denied any nausea or vomiting. He tolerated his diet yesterday. Unfortunately, his INR continued to be elevated and therefore Hematology consult was ordered, although I do not think the multicut line operator has seen him yet. PHYSICAL EXAMINATION: GENERAL: When I examined him this morning, he was resting slightly propped up in bed, in no apparent respiratory distress, slightly pale, no jaundice, cyanosis or thyromegaly. No jugular venous distention. No limb edema. VITAL SIGNS: His heart rate was 74, blood pressure was 137/84, temperature was 98.5, respiratory rate was 18 and oxygen saturation was 95%. HEAD, EYES, EARS, NOSE AND THROAT: Normocephalic, atraumatic. NECK: Supple. HEART: Showed normal first and second heart sounds. No gallop or murmur. CHEST: Clear to auscultation. No crepitation or rhonchi. ABDOMEN: Scaphoid, soft. Tenderness mostly in epigastric area. No guarding or rigidity. No organomegaly. All hernial orifice intact. Bowel sounds normal. NEUROLOGIC: He was awake, alert, grossly intact. His intake over the last 24 hours and output were incompletely recorded. LABORATORY DATA: As of this morning showed his white cell count to be 12,000, hemoglobin 11.5, hematocrit 33, MCV 93 and platelet count 242,000. His prothrombin time was 18.7, INR 1.6, his serum sodium 137, potassium 3.5, chloride 102, bicarbonate 25, anion gap of 10, BUN 8, creatinine 0.9, estimated GFR was 89 mL per minute, his glucose 104, calcium was 7.7. ASSESSMENT: 1. Acute pancreatitis, most likely due to gallstones, resolved. His serum lipase is down to 109. 2. Chronic cholecystitis/biliary dyskinesia. 3. Prolonged prothrombin time for which he has received 20 mg of vitamin K without really improvement, making it likely that he has abnormal liver disease, although his liver enzymes are normal. PLAN: To continue with IV fluid. His serum potassium has improved now at 3.5. Await the evaluation by the multicut line operator. AHMED M. JOSELITO, MD DR: CAROLA/geno JOB#: [id number] / [id number]
--- NOTE | 2020-03-26 10:36 | PDOC ---
SURGICAL PROGRESS NOTE Subjective Patient states he is doing well still has intermittent pain but overall seems better than yesterday. He denies any history bleeding issues has never had surgery in the past to know about bleeding issues but denies any excessive bleeding nosebleeds or bruising Vital Signs Vital Signs Date Time Temp Pulse Resp B/P (MAP) Pulse Ox O2 Delivery O2 Flow Rate FiO2 03/26/20 08:38 16 97 Room Air 03/26/20 08:08 2.0 03/26/20 07:00 98.5 74 137/84 (101) 98.5 I&O Intake and Output 03/26/20 07:00 Intake Total 200 ml Balance 200 ml Intake Oral 100 ml IV Total 100 ml # Voids 1 PATIENT HAS A MELTON: No General: Alert, Oriented X3, Cooperative, No acute distress Abdomen: Normal bowel sounds, Soft, Other (Tender to palpation epigastrium) Labs Laboratory Tests Test 03/25/20 04:12 03/26/20 03:25 Prothrombin Time 18.1 SEC (11.7-14.0) 18.7 SEC (11.7-14.0) Prothromb Time International Ratio 1.5 (0.8-1.1) 1.6 (0.8-1.1) Sodium Level 137 mmol/L (136-145) 137 mmol/L (136-145) Potassium Level 3.3 mmol/L (3.5-5.1) 3.5 mmol/L (3.5-5.1) Chloride Level 101 mmol/L (98-107) 102 mmol/L (98-107) Carbon Dioxide Level 30 mmol/L (21-32) 25 mmol/L (21-32) Anion Gap 6 (6-14) 10 (6-14) Blood Urea Nitrogen 9 mg/dL (8-26) 8 mg/dL (8-26) Creatinine 1.2 mg/dL (0.7-1.3) 0.9 mg/dL (0.7-1.3) Estimated GFR (Cockcroft-Gault) 64.4 89.7 Glucose Level 102 mg/dL (70-99) 104 mg/dL (70-99) Calcium Level 8.0 mg/dL (8.5-10.1) 7.7 mg/dL (8.5-10.1) Total Bilirubin 1.4 mg/dL (0.2-1.0) Direct Bilirubin 0.5 mg/dL (0.0-0.2) Aspartate Amino Transf (AST/SGOT) 22 U/L (15-37) Alanine Aminotransferase (ALT/SGPT) 27 U/L (16-63) Alkaline Phosphatase 78 U/L (46-116) Total Protein 6.4 g/dL (6.4-8.2) Albumin 2.2 g/dL (3.4-5.0) Amylase Level 54 U/L (25-115) Lipase 109 U/L (73-393) White Blood Count 12.0 x10^3/uL (4.0-11.0) Red Blood Count 3.59 x10^6/uL (4.30-5.70) Hemoglobin 11.5 g/dL (13.0-17.5) Hematocrit 33.4 % (39.0-53.0) Mean Corpuscular Volume 93 fL (79-100) Mean Corpuscular Hemoglobin 32 pg (25-35) Mean Corpuscular Hemoglobin Concent 35 g/dL (31-37) Red Cell Distribution Width 14.0 % (11.5-14.5) Platelet Count 242 x10^3/uL (140-400) Laboratory Tests Test 03/26/20 03:25 White Blood Count 12.0 x10^3/uL (4.0-11.0) Red Blood Count 3.59 x10^6/uL (4.30-5.70) Hemoglobin 11.5 g/dL (13.0-17.5) Hematocrit 33.4 % (39.0-53.0) Mean Corpuscular Volume 93 fL (79-100) Mean Corpuscular Hemoglobin 32 pg (25-35) Mean Corpuscular Hemoglobin Concent 35 g/dL (31-37) Red Cell Distribution Width 14.0 % (11.5-14.5) Platelet Count 242 x10^3/uL (140-400) Prothrombin Time 18.7 SEC (11.7-14.0) Prothromb Time International Ratio 1.6 (0.8-1.1) Sodium Level 137 mmol/L (136-145) Potassium Level 3.5 mmol/L (3.5-5.1) Chloride Level 102 mmol/L (98-107) Carbon Dioxide Level 25 mmol/L (21-32) Anion Gap 10 (6-14) Blood Urea Nitrogen 8 mg/dL (8-26) Creatinine 0.9 mg/dL (0.7-1.3) Estimated GFR (Cockcroft-Gault) 89.7 Glucose Level 104 mg/dL (70-99) Calcium Level 7.7 mg/dL (8.5-10.1) Assessment/Plan Pancreatitis likely from gallstones scheduled for laparoscopic cholecystectomy Elevated INR even with the addition of 2 doses of vitamin K. Consult hematology for evaluation, no history of bleeding issues Justicifation of Admission Dx: Justifications for Admission: Justification of Admission Dx: Yes FABI HICKS MD Mar 26, 2020 10:36
[2020-03-26 11:00] VITALS: BP 137/88
--- NOTE | 2020-03-26 12:36 | PDOC ---
Subjective: Subjective: Pain the same - requiring meds to help. Taking some clears. Objective: Objective: D/w surgery/Dhara - INR 1.6 s/p vit K x 2, awaiting hematology eval. Vital Signs: Vital Signs Date Time Temp Pulse Resp B/P (MAP) Pulse Ox O2 Delivery O2 Flow Rate FiO2 03/26/20 12:25 97 Room Air 03/26/20 11:00 98.3 74 18 137/88 (104) 98.3 03/26/20 08:08 2.0 Labs: Laboratory Tests Test 03/26/20 03:25 White Blood Count 12.0 x10^3/uL Red Blood Count 3.59 x10^6/uL Hemoglobin 11.5 g/dL Hematocrit 33.4 % Mean Corpuscular Volume 93 fL Mean Corpuscular Hemoglobin 32 pg Mean Corpuscular Hemoglobin Concent 35 g/dL Red Cell Distribution Width 14.0 % Platelet Count 242 x10^3/uL Prothrombin Time 18.7 SEC Prothromb Time International Ratio 1.6 Sodium Level 137 mmol/L Potassium Level 3.5 mmol/L Chloride Level 102 mmol/L Carbon Dioxide Level 25 mmol/L Anion Gap 10 Blood Urea Nitrogen 8 mg/dL Creatinine 0.9 mg/dL Estimated GFR (Cockcroft-Gault) 89.7 Glucose Level 104 mg/dL Calcium Level 7.7 mg/dL PE: GEN: uncomfortable LUNGS: CTAB HEART: RRR ABD: upper abd discomfort, quiet NEURO/PSYCH: A & O 3 A/P: Gallstone pancreatitis, coagulopathy, leukocytosis -- Surgery on hold w/ elevated INR, awaiting hematology thoughts. Justicifation of Admission Dx: Justifications for Admission: Justification of Admission Dx: Yes JEREMIAH LOPEZ Mar 26, 2020 12:36
--- NOTE | 2020-03-26 14:05 | NUR ---
SS following up with discharge planning. SS reviewed pt chart and discussed with pt RN. Pt is currently on room air. Pt on IV Zosyn. Surgery postponed today. INR currently 1.6. Hematology consulted. SS will continue to follow for discharge planning.
[2020-03-26 15:00] VITALS: BP 143/92
--- NOTE | 2020-03-26 15:32 | PDOC2 ---
CONSULT Date of Consult Date of Consult DATE: 03/26/20 TIME: 14:35 Reason for Consult Reason for Consult: Persistently elevated PT/INR, despite vitamin K. Referring Physician Referring Physician: Dhara Romero APRN. Identification/Chief Complaint Chief Complaint Abdominal pain due to pancreatitis. Source Source: Chart review, Patient History of Present Illness Reason for Visit: Mr. Maurilio Cheung is a 49-year-old male who was admitted to [facility] Emergency Room with severe abdominal pain located centrally in his umbilical area and with associated nausea and vomiting. He was diagnosed with acute pancreatitis. His serum lipase was up to more than 40,000. He had initial lactic acidosis, mildly impaired kidney function as well as mild leukocytosis. He was started on IV fluid, pain medication, antiemetic and kept n.p.o. His white cell count increased to 20,000 and he was started on Zosyn; however, eventually his white cell count came down to 10,000. His serum lipase came down from 40,000 to 178 on 03/23/2020. CT scan of the abdomen and pelvis showed large quantity of peripancreatic fluid. No loculated collection. Edematous appearance of the pancreas. Findings compatible with acute pancreatitis and no biliary dilatation. He has also enlarged prostate, bilateral undescended testicles and small hiatal hernia. The ultrasound showed that the gallstones are visualized. The portion of the gallbladder wall is prominent in thickness measuring up to 6mm and we did actually HIDA scan, which basically showed that the patient's cystic duct and common bile duct are patent. Negative for acute cholecystitis;however, gallbladder ejection fraction abnormal, measuring 23%. Findings may indicate gallbladder dyskinesia or chronic cholecystitis. In consultation with Dr. Pierre, a decision was made to transfer him to [facility] for laparoscopic cholecystectomy. Maurilio is being seen in consultation at the request of Dhara Romero APRN. Today, Maurilio is being seen via Telehealth. He states he has been on a "special" diet since 10/2019. "I cut back on my salt, protein, and fat intake and limited my calories." 55-lb weight loss since 10/2019. He states he was seen by nephrology ~ 3.5 weeks ago. "I was referred there because they told me I had acute kidney disease, but the assistant accounting manager said I didn't have kidney disease." Denies any exposure to pesticides or rodenticides. Denies personal or family history of thromboembolic events. Reports he developed pain in lower abdomen on 03/19/2020. Pain eventually involved mid abdominal area as well. Pain "all around my belly button". Rates pain 8-10 "without pain medications". Denies pain in RUQ. Soft stools, Denies bright red blood per rectum or melena. Denies any nasal bleeding. Denies fevers, chills, or other signs of infection. Past Medical History Cardiovascular: Hyperlipidemia Pulmonary: No pertinent hx GI: Other (Pancreatitis.) Heme/Onc: Anemia NOS Hepatobiliary: Other (Chronic cholecystitis. ) Musculoskeletal: Weakness Rheumatologic: No pertinent hx Infectious disease: Other (Recent febrile illness) ENT: No pertinent hx Renal/: Other (Recent history of "kidney disease".) Endocrine: No pertinent hx Dermatology: No pertinent hx Past Surgical History Past Surgical History: No pertinent history Family History Family History: Other (noncontributory to current illness ) Social History Quit ALCOHOL: none Drugs: None Lives: with Family Current Problem List Problem List Chronic cholecystitis. Acute pancreatitis. Abdominal pain. Elevated INR. Undescended testicles. Current Medications Current Medications Current Medications Sodium Chloride 1,000 ml @ 100 mls/hr Q10H IV Last administered on 03/24/20at 05:34; Start 03/23/20 at 20:00; Stop 03/24/20 at 09:13; Status DC Piperacillin Sod/ Tazobactam Sod 3.375 gm/Sodium Chloride 50 ml @ 100 mls/hr Q6HRS IV Last administered on 03/26/20at 11:58; Start 03/23/20 at 20:00 Docusate Sodium (Colace) 100 mg BID PO Last administered on 03/26/20at 08:06; Start 03/23/20 at 21:00 Hydromorphone HCl (Dilaudid) 4 mg PRN Q3HRS PRN IV PAIN Last administered on 03/26/20at 12:25; Start 03/23/20 at 19:30 Ondansetron HCl (Zofran) 4 mg PRN Q4HRS PRN IVP NAUSEA/VOMITING Last administered on 03/25/20at 10:12; Start 03/23/20 at 19:30 Pantoprazole Sodium (PROTONIX VIAL for IV PUSH) 40 mg [id number] IVP Last administered on 03/26/20at 08:07; Start 03/23/20 at 20:00 Polyethylene Glycol (miraLAX PACKET) 17 gm DAILY PO Last administered on 03/26/20at 08:05; Start 03/24/20 at 09:00 Potassium Chloride/Sodium Chloride 1,000 ml @ 100 mls/hr Q10H IV Last administered on 03/26/20at 08:18; Start 03/24/20 at 10:00 Phytonadione (Vitamin K Ampule) 10 mg 1X ONCE SQ Last administered on 03/24/20at 09:50; Start 03/24/20 at 10:00; Stop 03/24/20 at 10:01; Status DC Ondansetron HCl (Zofran) 4 mg PRN Q6HRS PRN IV NAUSEA/VOMITING Last administered on 03/26/20at 00:25; Start 03/25/20 at 07:00; Stop 03/26/20 at 06:59; Status DC Fentanyl Citrate (Fentanyl 2ml Vial) 25 mcg PRN Q5MIN PRN IV MILD PAIN 1-3; Start 03/25/20 at 07:00; Stop 03/26/20 at 06:59; Status DC Fentanyl Citrate (Fentanyl 2ml Vial) 50 mcg PRN Q5MIN PRN IV MODERATE TO SEVERE PAIN; Start 03/25/20 at 07:00; Stop 03/26/20 at 06:59; Status DC Morphine Sulfate (Morphine Sulfate) 1 mg PRN Q10MIN PRN IV SEVERE PAIN 7-10; Start 03/25/20 at 07:00; Stop 03/26/20 at 06:59; Status DC Ringer's Solution 1,000 ml @ 30 mls/hr Q24H IV ; Start 03/25/20 at 07:00; Stop 03/25/20 at 18:59; Status DC Lidocaine HCl (Xylocaine-Mpf 1% 2ml Vial) 2 ml PRN 1X PRN ID PRIOR TO IV START; Start 03/25/20 at 07:00; Stop 03/26/20 at 06:59; Status DC Hydromorphone HCl (Dilaudid) 0.5 mg PRN Q10MIN PRN IV SEV PAIN, Second choice; Start 03/25/20 at 07:00; Stop 03/26/20 at 06:59; Status DC Prochlorperazine Edisylate (Compazine) 5 mg PACU PRN PRN IV NAUSEA, MRX1; Start 03/25/20 at 07:00; Stop 03/26/20 at 06:59; Status DC Phytonadione (Vitamin K Ampule) 10 mg 1X ONCE SQ Last administered on 03/25/20at 13:17; Start 03/25/20 at 09:30; Stop 03/25/20 at 09:31; Status DC Lactobacillus Rhamnosus (Culturelle) 1 cap BID PO Last administered on 03/26/20at 08:06; Start 03/25/20 at 21:00 Ringer's Solution 1,000 ml @ 30 mls/hr Q24H IV ; Start 03/26/20 at 07:00; Stop 03/26/20 at 18:59 Allergies Allergies: Coded Allergies: No Known Drug Allergies (Unverified , 03/23/20) ROS General: YES: Fatigue, Appetite (Decreased) PSYCHOLOGICAL ROS: YES: Decreased libido Eyes: Yes Excessive tearing ENDOCRINE: YES: Unexpected Weight Changes Gastrointestinal: Yes Nausea, Yes Vomiting, Yes Abdominal Pain Musculoskeletal: Yes Muscular Weakness Neurological: Yes Weakness Physical Exam General: Alert, Oriented X3, Cooperative, mild distress HEENT: Atraumatic, PERRLA, EOMI Lungs: Clear to auscultation Heart: Regular rate Abdomen: Normal bowel sounds, Soft, Other (Tenderness in periumbilical and suprapubic areas. ) Extremities: No clubbing, No cyanosis, No edema, Normal pulses, No tenderness/swelling Skin: No rashes, No breakdown Neuro: Normal gait, Normal speech, Normal tone, Sensation intact, Reflexes 2+ Psych/Mental Status: Mental status NL, Mood NL MUSCULOSKELETAL: No joint tenderness Vitals VITALS Vital Signs Date Time Temp Pulse Resp B/P (MAP) Pulse Ox O2 Delivery O2 Flow Rate FiO2 03/26/20 12:55 97 Room Air 03/26/20 11:00 98.3 74 18 137/88 (104) 98.3 03/26/20 08:08 2.0 Labs Labs Laboratory Tests Test 03/25/20 04:12 03/26/20 03:25 Prothrombin Time 18.1 SEC (11.7-14.0) 18.7 SEC (11.7-14.0) Prothromb Time International Ratio 1.5 (0.8-1.1) 1.6 (0.8-1.1) Sodium Level 137 mmol/L (136-145) 137 mmol/L (136-145) Potassium Level 3.3 mmol/L (3.5-5.1) 3.5 mmol/L (3.5-5.1) Chloride Level 101 mmol/L (98-107) 102 mmol/L (98-107) Carbon Dioxide Level 30 mmol/L (21-32) 25 mmol/L (21-32) Anion Gap 6 (6-14) 10 (6-14) Blood Urea Nitrogen 9 mg/dL (8-26) 8 mg/dL (8-26) Creatinine 1.2 mg/dL (0.7-1.3) 0.9 mg/dL (0.7-1.3) Estimated GFR (Cockcroft-Gault) 64.4 89.7 Glucose Level 102 mg/dL (70-99) 104 mg/dL (70-99) Calcium Level 8.0 mg/dL (8.5-10.1) 7.7 mg/dL (8.5-10.1) Total Bilirubin 1.4 mg/dL (0.2-1.0) Direct Bilirubin 0.5 mg/dL (0.0-0.2) Aspartate Amino Transf (AST/SGOT) 22 U/L (15-37) Alanine Aminotransferase (ALT/SGPT) 27 U/L (16-63) Alkaline Phosphatase 78 U/L (46-116) Total Protein 6.4 g/dL (6.4-8.2) Albumin 2.2 g/dL (3.4-5.0) Amylase Level 54 U/L (25-115) Lipase 109 U/L (73-393) White Blood Count 12.0 x10^3/uL (4.0-11.0) Red Blood Count 3.59 x10^6/uL (4.30-5.70) Hemoglobin 11.5 g/dL (13.0-17.5) Hematocrit 33.4 % (39.0-53.0) Mean Corpuscular Volume 93 fL (79-100) Mean Corpuscular Hemoglobin 32 pg (25-35) Mean Corpuscular Hemoglobin Concent 35 g/dL (31-37) Red Cell Distribution Width 14.0 % (11.5-14.5) Platelet Count 242 x10^3/uL (140-400) Laboratory Tests Test 03/26/20 03:25 White Blood Count 12.0 x10^3/uL (4.0-11.0) Red Blood Count 3.59 x10^6/uL (4.30-5.70) Hemoglobin 11.5 g/dL (13.0-17.5) Hematocrit 33.4 % (39.0-53.0) Mean Corpuscular Volume 93 fL (79-100) Mean Corpuscular Hemoglobin 32 pg (25-35) Mean Corpuscular Hemoglobin Concent 35 g/dL (31-37) Red Cell Distribution Width 14.0 % (11.5-14.5) Platelet Count 242 x10^3/uL (140-400) Prothrombin Time 18.7 SEC (11.7-14.0) Prothromb Time International Ratio 1.6 (0.8-1.1) Sodium Level 137 mmol/L (136-145) Potassium Level 3.5 mmol/L (3.5-5.1) Chloride Level 102 mmol/L (98-107) Carbon Dioxide Level 25 mmol/L (21-32) Anion Gap 10 (6-14) Blood Urea Nitrogen 8 mg/dL (8-26) Creatinine 0.9 mg/dL (0.7-1.3) Estimated GFR (Cockcroft-Gault) 89.7 Glucose Level 104 mg/dL (70-99) Calcium Level 7.7 mg/dL (8.5-10.1) Images Images N/A Assessment/Plan Assessment/Plan ASSESSMENT: 49 year-old male with persistently elevated INR of 1.6 despite vitamin K 10 mg sc on 03/24/2020 and 03/25/2020. Persistently elevated PT/INR could be hereditary or acquired, due to lupus anticoagulants, liver failure, exposure to rat poison (brodifacoum or other long acting coumarins), antibiotic therapy (the patient has been on broad spectrum Zosyn for several days) with depletion of normal bowel marce (which usually produces vitamin K), DIC (less likely due to normal platelet count) due to recent severe pancreatitis. In the past, the patient had no surgical interventions, except for stitches for head trauma, which was not accompanied by any significant bleeding. If Factor VII is decreased, but Factor V is normal, we are dealing with depletion of vitamin K-related factors. If PT/INR is persistently elevated on 03/27/2020 will consider testing for long-acting warfarins. If both Factor V and Factor VII are decreased, it's likely related to insufficient production by Maurilio's liver. The patient does have significantly decreased albumin (1.9-2.2), elevated bilirubin of 1.4, along with normal LFT's which could be observed with liver dysfunction. PLAN: 1. DIC panel, Factor V, Factor VII, lupus anticoagulants, next available. 2. FFP x 4 units could be used if mixing studies are normal, for INR reversal prior to surgery. 3. Will follow on the labs. Thank you for the opportunity to see your patient. Please call with any questions. Bandar Leija MD [phone]. KAMILAH LEIJA MD Mar 26, 2020 15:32
[2020-03-26 17:05] LABS: PROTHROMBIN TIME PATIENT 18.5 SEC (11.7-14.0)
[2020-03-26 17:21] LABS: D-DIMER 12.79 ug/mlFEU (0.00-0.50)
[2020-03-26 19:51] VITALS: BP 124/81
[2020-03-26 22:38] VITALS: BP 136/79
[2020-03-27] MEDS: HYDROmorphone 2 MG/ML VIAL IV PRN ×7 (01:02→23:42)
[2020-03-27 03:30] VITALS: BP 122/74
[2020-03-27] MEDS: PIPERACILLIN/TAZOBACTAM 3.375 GM in IV NORMAL SALINE 50ML 50 ML IV SCH ×4 (05:07→23:42)
[2020-03-27 05:17] LABS: PROTHROMBIN TIME PATIENT 18.8 SEC (11.7-14.0)
[2020-03-27 05:34] LABS: CALCIUM 7.6 mg/dL (8.5-10.1); GFR 79.4; POTASSIUM 3.6 mmol/L (3.5-5.1)
[2020-03-27 07:00] VITALS: BP 130/83
[2020-03-27] MEDS: LACTOBACILLUS RHAMNOSUS GG 1 CAPSULE. PO SCH ×2 (08:20→20:35)
[2020-03-27] MEDS: PANTOPRAZOLE IV PUSH 40 MG VIAL. IVP SCH ×2 (08:20→16:07)
[2020-03-27] MEDS: POTASSIUM CL 40MEQ IN 0.9%NACL 1,000 ML IV SCH ×2 (08:20→18:33)
[2020-03-27] MEDS: ONDANSETRON PF 4 MG/2 ML VIAL. IVP PRN (08:24)
[2020-03-27] MEDS: DOCUSATE SODIUM 100 MG CAPSULE. PO SCH (09:00)
[2020-03-27] MEDS: POLYETHYLENE GLYCOL 3350 17 GM PACKET. PO SCH (09:00)
--- NOTE | 2020-03-27 09:27 | PDOC ---
SURGICAL PROGRESS NOTE Subjective Patient doing well still has some midepigastric abdominal pain about the same as yesterday Vital Signs Vital Signs Date Time Temp Pulse Resp B/P (MAP) Pulse Ox O2 Delivery O2 Flow Rate FiO2 03/27/20 07:00 98.0 71 18 130/83 (99) 97 Room Air 98.0 03/26/20 08:08 2.0 I&O Intake and Output 03/27/20 07:00 Intake Total 2420 ml Output Total 1 ml Balance 2419 ml Intake Oral 270 ml IV Total 2150 ml Output Urine Total 1 ml PATIENT HAS A MELTON: No General: Alert, Oriented X3, Cooperative, mild distress Abdomen: Normal bowel sounds, Soft, Other (Mildly tender palpation epigastrium) Labs Laboratory Tests Test 03/26/20 03:25 03/26/20 16:40 03/27/20 04:00 White Blood Count 12.0 x10^3/uL (4.0-11.0) Red Blood Count 3.59 x10^6/uL (4.30-5.70) Hemoglobin 11.5 g/dL (13.0-17.5) Hematocrit 33.4 % (39.0-53.0) Mean Corpuscular Volume 93 fL (79-100) Mean Corpuscular Hemoglobin 32 pg (25-35) Mean Corpuscular Hemoglobin Concent 35 g/dL (31-37) Red Cell Distribution Width 14.0 % (11.5-14.5) Platelet Count 242 x10^3/uL (140-400) 181 x10^3/uL (140-400) Prothrombin Time 18.7 SEC (11.7-14.0) 18.5 SEC (11.7-14.0) 18.8 SEC (11.7-14.0) Prothromb Time International Ratio 1.6 (0.8-1.1) 1.6 (0.8-1.1) 1.6 (0.8-1.1) Sodium Level 137 mmol/L (136-145) 135 mmol/L (136-145) Potassium Level 3.5 mmol/L (3.5-5.1) 3.6 mmol/L (3.5-5.1) Chloride Level 102 mmol/L (98-107) 101 mmol/L (98-107) Carbon Dioxide Level 25 mmol/L (21-32) 28 mmol/L (21-32) Anion Gap 10 (6-14) 6 (6-14) Blood Urea Nitrogen 8 mg/dL (8-26) 6 mg/dL (8-26) Creatinine 0.9 mg/dL (0.7-1.3) 1.0 mg/dL (0.7-1.3) Estimated GFR (Cockcroft-Gault) 89.7 79.4 Glucose Level 104 mg/dL (70-99) 112 mg/dL (70-99) Calcium Level 7.7 mg/dL (8.5-10.1) 7.6 mg/dL (8.5-10.1) Activated Partial Thromboplast Time 29 SEC (24-38) Fibrinogen 664 mg/dL (200-440) D-Dimer (Mamta) 12.79 ug/mlFEU (0.00-0.50) Laboratory Tests Test 03/26/20 16:40 03/27/20 04:00 Platelet Count 181 x10^3/uL (140-400) Prothrombin Time 18.5 SEC (11.7-14.0) 18.8 SEC (11.7-14.0) Prothromb Time International Ratio 1.6 (0.8-1.1) 1.6 (0.8-1.1) Activated Partial Thromboplast Time 29 SEC (24-38) Fibrinogen 664 mg/dL (200-440) D-Dimer (Mamta) 12.79 ug/mlFEU (0.00-0.50) Sodium Level 135 mmol/L (136-145) Potassium Level 3.6 mmol/L (3.5-5.1) Chloride Level 101 mmol/L (98-107) Carbon Dioxide Level 28 mmol/L (21-32) Anion Gap 6 (6-14) Blood Urea Nitrogen 6 mg/dL (8-26) Creatinine 1.0 mg/dL (0.7-1.3) Estimated GFR (Cockcroft-Gault) 79.4 Glucose Level 112 mg/dL (70-99) Calcium Level 7.6 mg/dL (8.5-10.1) Assessment/Plan Gallstone pancreatitis appears pancreatitis is improving Coagulopathy unknown etiology hematology has seen checking on clotting factors will await final opinion May just need FFP prior to surgery Continue supportive care Justicifation of Admission Dx: Justifications for Admission: Justification of Admission Dx: Yes FABI HICKS MD Mar 27, 2020 09:27
--- NOTE | 2020-03-27 10:44 | PN ---
DATE: 03/27/2020 SUBJECTIVE: The patient is resting, slightly propped up in bed, no apparent distress, awake, alert, seems to be more comfortable and in good spirits. He is on a full liquid diet. Apparently, his INR continued to be persistently elevated and was seen by the oracle database architect/oncologist who basically ordered multiple tests including factor VII, factor V assay and again PT/INR. The DIC panel was normal. PHYSICAL EXAMINATION: GENERAL: When I examined him this morning, he looked well and was clearly in no apparent respiratory distress. No pallor, jaundice, cyanosis or thyromegaly. No jugular venous distention. No limb edema. VITAL SIGNS: His heart rate was 71, blood pressure was 130/83, temperature was 98, respiratory rate was 18 and oxygen saturation was 97% on room air. HEAD, EYES, EARS, NOSE AND THROAT: Showed normocephalic, atraumatic. NECK: Supple. HEART: Showed normal first and second heart sounds. No gallop, rub or murmur. CHEST: Clear to auscultation. No crepitation or rhonchi. ABDOMEN: Distended, soft. Tenderness mostly in the epigastric area. No guarding or rigidity. No organomegaly. All hernial orifice intact. Bowel sounds normal. NEUROLOGIC: He is awake, alert, responding appropriately. All cranial nerves are intact. He moves extremities without difficulty. His intake over the last 24 hours and output were incompletely recorded. LABORATORY DATA: His lab work this morning showed his prothrombin time to 18.8, INR 1.6. His fibrinogen was 600 and 6400. D-dimer was high at 12.79. His white cell count yesterday was 12,000, hemoglobin 11, hematocrit 33, MCV 93 and platelet count 342,000. His chemistry showed a serum sodium 135, potassium 3.6, chloride 101, bicarbonate 28, anion gap of 6, BUN 6, creatinine 1, estimated GFR was 79 mL per minute. His glucose was 112, calcium was 7.6. His most recent serum lipase was 109. ASSESSMENT: 1. Gallstone pancreatitis, resolving, although the patient continued to have some abdominal pain that seems to be much improved. His most recent serum lipase was down to 109. 2. Chronic cholecystitis/biliary dyskinesia. 3. Prolonged prothrombin time, for which he received 20 mg of vitamin K without any improvement. The patient was seen by the oncologist/oracle database architect and he ordered some lab works that are still pending, so the cholecystectomy is probably going to be on hold, probably till Monday. MITA YEE MD DR: CAROLA/geno JOB#: [id number] / [id number]
[2020-03-27 11:00] VITALS: BP 121/76
--- NOTE | 2020-03-27 12:14 | PDOC ---
Progress Note Current Problem List Problems: (1) Pancreatitis (2) Coagulopathy (3) Cryptorchism Subjective Subjective Abdominal pain, improving. ROS ROS No nausea No vomiting No pain No rash Vital Sign Vital Signs Vital Signs Date Time Temp Pulse Resp B/P (MAP) Pulse Ox O2 Delivery O2 Flow Rate FiO2 03/27/20 11:00 97.9 76 18 121/76 (91) 98 Room Air 97.9 03/26/20 08:08 2.0 Physical Exam PHYSICAL EXAM GENERAL: NAD, Alert HEENT: PERRL, OC/OP NECK: Supple, no JVD, no LN LUNGS: Clear HEART: S1S2, no gallop, no murmur ABD: Soft, NT, no organomegaly, no rebound EXT: No edema, no cyanosis DIRECTOR RADIO NEWS: Alert, oriented x 3, no focal neurologic deficit SKIN: No rash IV: ok Labs Lab Laboratory Tests Test 03/26/20 16:40 03/27/20 04:00 Platelet Count 181 x10^3/uL (140-400) Prothrombin Time 18.5 SEC (11.7-14.0) 18.8 SEC (11.7-14.0) Prothromb Time International Ratio 1.6 (0.8-1.1) 1.6 (0.8-1.1) Activated Partial Thromboplast Time 29 SEC (24-38) Fibrinogen 664 mg/dL (200-440) D-Dimer (Mamta) 12.79 ug/mlFEU (0.00-0.50) Sodium Level 135 mmol/L (136-145) Potassium Level 3.6 mmol/L (3.5-5.1) Chloride Level 101 mmol/L (98-107) Carbon Dioxide Level 28 mmol/L (21-32) Anion Gap 6 (6-14) Blood Urea Nitrogen 6 mg/dL (8-26) Creatinine 1.0 mg/dL (0.7-1.3) Estimated GFR (Cockcroft-Gault) 79.4 Glucose Level 112 mg/dL (70-99) Calcium Level 7.6 mg/dL (8.5-10.1) Hepatitis A IgM Antibody Nonreactive (Nonreactive) Hepatitis B Surface Antigen Nonreactive (Nonreactive) Hepatitis B Core IgM Antibody Nonreactive (Nonreactive) Hepatitis C IgG Antibody Nonreactive (Nonreactive) Objective Assessment 49 year-old male with persistently elevated INR of 1.6 despite vitamin K 10 mg sc on 03/24/2020 and 03/25/2020, in the setting of recent acute pancreatitis and antibiotic therapy (Zosyn). No evidence of significant DIC due to elevated fibrinogen levels and normal platelets. Lupus anticoagulant panel, Factor V and VII levels are not back yet. LFT's were not checked today. Will plan to test for exposure to rat poison (brodifacoum or other long acting coumarins). Plan Plan of Care 1. LFT's, next available. 2. Will test for superwarfarins. 3. FFP x 4 units could be used if mixing studies are normal, for INR reversal prior to surgery. 4. Will follow on the labs. Thank you for the opportunity to see your patient. Please call with any questions. Bandar Leija MD [phone]. Justicifation of Admission Dx: Justifications for Admission: Justification of Admission Dx: Yes Nutrition Consultation Dietary Evaluation: Recommendations by RD: Dietary education by RD, Increase Calorie Intake, Protein supplementation Comments: REC Ensure clear (apple) w/dinner trays while pt on clear liquid diet REC diet advancement past clears within 72 hrs, goal diet cardiac or renal pending labs Expected Outcomes/Goals: diet advancement Interpretation of weight loss: >7.5% in 3 months Malnutrition Findings: Food and Nutrition Intake (Mod: <75% est energy req 7days Weight Status: Overweight KAMILAH LEIJA MD Mar 27, 2020 12:14
--- NOTE | 2020-03-27 12:30 | PDOC ---
Subjective: Subjective: Pain different today - "below" groin to belly button. Objective: Objective: Reviewed hematology notes. Vital Signs: Vital Signs Date Time Temp Pulse Resp B/P (MAP) Pulse Ox O2 Delivery O2 Flow Rate FiO2 03/27/20 11:00 97.9 76 18 121/76 (91) 98 Room Air 97.9 03/26/20 08:08 2.0 PE: GEN: NAD LUNGS: CTAB HEART: RRR ABD: periumbilical discomfort, quiet NEURO/PSYCH: A & O 3 A/P: Gallstone pancreatitis, coagulopathy -- Hematology eval ongoing, awaiting pending labs. Justicifation of Admission Dx: Justifications for Admission: Justification of Admission Dx: Yes JEREMIAH LOPEZ Mar 27, 2020 12:30
--- NOTE | 2020-03-27 12:44 | NUR ---
SS following up with discharge planning. SS reviewed pt chart and discussed with pt RN. Pt is currently on room air. Surgery postponed at this time. Pt INR 1.6. Per RN, pt is not on any blood thinners. INR needs to be improved prior to surgery. Hematology following. SS will continue to follow for discharge planning.
[2020-03-27 13:09] LABS: DIRECT BILIRUBIN 0.3 mg/dL (0.0-0.2); TOTAL BILIRUBIN 0.7 mg/dL (0.2-1.0); TOTAL PROTEIN 5.1 g/dL (6.4-8.2)
[2020-03-27 15:00] VITALS: BP 118/75
[2020-03-27] MEDS ORDERED: DOCUSATE SODIUM 100 MG CAPSULE. PO PRN (19:45)
[2020-03-27 23:29] VITALS: BP 116/71
[2020-03-28 02:50] VITALS: BP 116/73
[2020-03-28] MEDS: HYDROmorphone 2 MG/ML VIAL IV PRN ×5 (04:26→23:13)
[2020-03-28 04:49] LABS: HEMATOCRIT 31.5 % (39.0-53.0); HEMOGLOBIN 11.1 g/dL (13.0-17.5)
[2020-03-28 05:42] LABS: ALBUMIN 1.9 g/dL (3.4-5.0); ALBUMIN/GLOBULIN RATIO 0.5 (1.0-1.7); CALCIUM 7.8 mg/dL (8.5-10.1); GFR 79.4; POTASSIUM 4.3 mmol/L (3.5-5.1); TOTAL BILIRUBIN 0.7 mg/dL (0.2-1.0); TOTAL PROTEIN 5.7 g/dL (6.4-8.2)
[2020-03-28] MEDS: PIPERACILLIN/TAZOBACTAM 3.375 GM in IV NORMAL SALINE 50ML 50 ML IV SCH ×4 (06:39→23:12)
[2020-03-28 07:16] VITALS: BP 124/79
[2020-03-28] MEDS: LACTOBACILLUS RHAMNOSUS GG 1 CAPSULE. PO SCH ×2 (08:40→19:37)
[2020-03-28] MEDS: POLYETHYLENE GLYCOL 3350 17 GM PACKET. PO SCH (08:40)
[2020-03-28] MEDS: PANTOPRAZOLE IV PUSH 40 MG VIAL. IVP SCH ×2 (08:40→15:51)
[2020-03-28 10:24] VITALS: BP 133/79
--- NOTE | 2020-03-28 10:39 | PN ---
DATE: 03/28/2020 SUBJECTIVE: The patient is resting, slightly propped up in bed, in no apparent respiratory distress. He is awake, alert, continued to complain of back pain. He is on a full liquid diet and tolerating it very well. His INR continued to be elevated and therefore, he was seen by the negative assembler and the labs requested are still pending. They were sent [facility] to [facility]. PHYSICAL EXAMINATION: GENERAL: When I examined him, he looked well and was clearly in no apparent respiratory distress, pale, but no jaundice, cyanosis or thyromegaly. No jugular venous distention. No lower limb edema. VITAL SIGNS: His heart rate was 60, blood pressure was 124/79, temperature was 98.1, respiratory rate 19 and oxygen saturation was 94% on room air. The rest of clinical exam is stable, has not really changed. His intake over the last 24 hours was 2400, output was not reported. LABORATORY DATA: His H and H was 11 and 31. His chemistry this morning showed a serum sodium 136, potassium 4.3, chloride 102, bicarbonate 27, anion gap of 7, BUN 6, creatinine 1, estimated GFR was 79 mL per minute. His glucose was 102. Calcium was 7.8. Total bilirubin, AST, ALT, alkaline phosphatase were normal. Total protein was 5.7, albumin was 1.9. Serum lipase was normal at 179. ASSESSMENT: 1. Gallstone pancreatitis, resolving, although the patient continued to have some abdominal pain. His most recent serum lipase was down to 179. 2. Chronic cholecystitis/biliary dyskinesia. 3. Prolonged prothrombin time; that did not correct with 20 mg of vitamin K. He was seen by the negative assembler, who ordered multiple labs that are still pending. PLAN: My plan is to arrange for him to have bilateral venous Doppler ultrasound as he has been in bed for a while and he also has elevated D-dimer and if the ultrasound is negative, we will start him on SCDs for DVT prophylaxis. MITA YEE MD DR: CAROLA/geno JOB#: [id number] / [id number]
[2020-03-28] MEDS: POTASSIUM CL 40MEQ IN 0.9%NACL 1,000 ML IV SCH ×3 (11:01→23:13)
--- NOTE | 2020-03-28 13:21 | PDOC ---
G I PROGRESS NOTE Subjective Still abdominal pain. Objective Much of coagulation w/u pending. Physical Exam Lungs clear. RRR Abdomen soft, epigastric tenderness. Review of Relevant I have reviewed the following items lucretia (where applicable) has been applied. Labs Laboratory Tests Test 03/26/20 16:40 03/27/20 04:00 03/28/20 04:00 Platelet Count 181 x10^3/uL (140-400) Prothrombin Time 18.5 SEC (11.7-14.0) 18.8 SEC (11.7-14.0) Prothromb Time International Ratio 1.6 (0.8-1.1) 1.6 (0.8-1.1) Activated Partial Thromboplast Time 29 SEC (24-38) Fibrinogen 664 mg/dL (200-440) D-Dimer (Mamta) 12.79 ug/mlFEU (0.00-0.50) Sodium Level 135 mmol/L (136-145) 136 mmol/L (136-145) Potassium Level 3.6 mmol/L (3.5-5.1) 4.3 mmol/L (3.5-5.1) Chloride Level 101 mmol/L (98-107) 102 mmol/L (98-107) Carbon Dioxide Level 28 mmol/L (21-32) 27 mmol/L (21-32) Anion Gap 6 (6-14) 7 (6-14) Blood Urea Nitrogen 6 mg/dL (8-26) 6 mg/dL (8-26) Creatinine 1.0 mg/dL (0.7-1.3) 1.0 mg/dL (0.7-1.3) Estimated GFR (Cockcroft-Gault) 79.4 79.4 Glucose Level 112 mg/dL (70-99) 102 mg/dL (70-99) Calcium Level 7.6 mg/dL (8.5-10.1) 7.8 mg/dL (8.5-10.1) Total Bilirubin 0.7 mg/dL (0.2-1.0) 0.7 mg/dL (0.2-1.0) Direct Bilirubin 0.3 mg/dL (0.0-0.2) Aspartate Amino Transf (AST/SGOT) 22 U/L (15-37) 23 U/L (15-37) Alanine Aminotransferase (ALT/SGPT) 22 U/L (16-63) 21 U/L (16-63) Alkaline Phosphatase 61 U/L (46-116) 54 U/L (46-116) Total Protein 5.1 g/dL (6.4-8.2) 5.7 g/dL (6.4-8.2) Albumin 2.0 g/dL (3.4-5.0) 1.9 g/dL (3.4-5.0) Hepatitis A IgM Antibody Nonreactive (Nonreactive) Hepatitis B Surface Antigen Nonreactive (Nonreactive) Hepatitis B Core IgM Antibody Nonreactive (Nonreactive) Hepatitis C IgG Antibody Nonreactive (Nonreactive) Hemoglobin 11.1 g/dL (13.0-17.5) Hematocrit 31.5 % (39.0-53.0) BUN/Creatinine Ratio 6 (6-20) Albumin/Globulin Ratio 0.5 (1.0-1.7) Lipase 179 U/L (73-393) Laboratory Tests Test 03/28/20 04:00 Hemoglobin 11.1 g/dL (13.0-17.5) Hematocrit 31.5 % (39.0-53.0) Sodium Level 136 mmol/L (136-145) Potassium Level 4.3 mmol/L (3.5-5.1) Chloride Level 102 mmol/L (98-107) Carbon Dioxide Level 27 mmol/L (21-32) Anion Gap 7 (6-14) Blood Urea Nitrogen 6 mg/dL (8-26) Creatinine 1.0 mg/dL (0.7-1.3) Estimated GFR (Cockcroft-Gault) 79.4 BUN/Creatinine Ratio 6 (6-20) Glucose Level 102 mg/dL (70-99) Calcium Level 7.8 mg/dL (8.5-10.1) Total Bilirubin 0.7 mg/dL (0.2-1.0) Aspartate Amino Transf (AST/SGOT) 23 U/L (15-37) Alanine Aminotransferase (ALT/SGPT) 21 U/L (16-63) Alkaline Phosphatase 54 U/L (46-116) Total Protein 5.7 g/dL (6.4-8.2) Albumin 1.9 g/dL (3.4-5.0) Albumin/Globulin Ratio 0.5 (1.0-1.7) Lipase 179 U/L (73-393) Vitals/I & O Vital Sign - Last 24 Hours 03/27/20 03/27/20 03/27/20 03/27/20 15:00 19:56 20:00 20:26 Temp 98.1 98.1 Pulse 71 Resp 18 B/P (MAP) 118/75 (89) Pulse Ox 100 O2 Delivery Room Air Room Air Room Air Room Air 03/27/20 03/28/20 03/28/20 03/28/20 23:29 02:50 04:26 04:56 Temp 98.8 98.2 98.8 98.2 Pulse 79 65 Resp 20 19 B/P (MAP) 116/71 (86) 116/73 (87) Pulse Ox 98 98 O2 Delivery Room Air Room Air Room Air Room Air 03/28/20 03/28/20 03/28/20 03/28/20 07:16 08:00 10:24 11:01 Temp 98.1 98.4 98.1 98.4 Pulse 60 66 Resp 19 19 18 B/P (MAP) 124/79 (94) 133/79 (97) Pulse Ox 94 95 95 O2 Delivery Room Air Room Air Room Air Room Air O2 Flow Rate 2.0 03/28/20 11:31 Resp 18 Pulse Ox 95 O2 Delivery Room Air O2 Flow Rate 2.0 Intake and Output 03/27/20 03/27/20 03/28/20 15:00 23:00 07:00 Intake Total 50 ml 100 ml Balance 50 ml 100 ml Assessment Probable biliary pancreatitis; numbers OK but still pain. Coagulopathy? Plan of Care Note Continue as now. If surgery delayed much longer, may need TPN. Probably should repeat CT early next week if no operation. Justicifation of Admission Dx: Justifications for Admission: Justification of Admission Dx: Yes JOSEPH CRUZ MD Mar 28, 2020 13:21
--- NOTE | 2020-03-28 13:58 | RAD ---
Examination: Bilateral Lower Extremity Venous Doppler Ultrasound History: Bilateral leg swelling Comparison: None Procedure: Macias scale, color flow 2D and spectal waveform analysis images are obtained with and without compression in the area of the common femoral vein, superficial femoral vein - femoral vein junction, main femoral vein (superficial femoral vein) and popliteal vein. Veins of the proximal calf are also imaged. Findings: There is normal duplex flow, color flow and compressibility of all visualized vein segments. No evidence of deep venous thrombus is present. Impression: No evidence of DVT in the bilateral lower extremity venous system. Electronically signed by: Wilmar Arnold MD (03/28/2020 1:55 PM) [id number]
--- NOTE | 2020-03-28 14:13 | PDOC ---
SURGICAL PROGRESS NOTE Subjective Pt out of room Will f/u in AM Consider surgery pending coagulopathy evaluation. Vital Signs Vital Signs Date Time Temp Pulse Resp B/P (MAP) Pulse Ox O2 Delivery O2 Flow Rate FiO2 03/28/20 11:31 18 95 Room Air 2.0 03/28/20 10:24 98.4 66 133/79 (97) 98.4 I&O Intake and Output 03/28/20 07:00 Intake Total 150 ml Balance 150 ml Intake Oral 150 ml # Voids 2 Labs Laboratory Tests Test 03/26/20 16:40 03/27/20 04:00 03/28/20 04:00 Platelet Count 181 x10^3/uL (140-400) Prothrombin Time 18.5 SEC (11.7-14.0) 18.8 SEC (11.7-14.0) Prothromb Time International Ratio 1.6 (0.8-1.1) 1.6 (0.8-1.1) Activated Partial Thromboplast Time 29 SEC (24-38) Fibrinogen 664 mg/dL (200-440) D-Dimer (Mamta) 12.79 ug/mlFEU (0.00-0.50) Sodium Level 135 mmol/L (136-145) 136 mmol/L (136-145) Potassium Level 3.6 mmol/L (3.5-5.1) 4.3 mmol/L (3.5-5.1) Chloride Level 101 mmol/L (98-107) 102 mmol/L (98-107) Carbon Dioxide Level 28 mmol/L (21-32) 27 mmol/L (21-32) Anion Gap 6 (6-14) 7 (6-14) Blood Urea Nitrogen 6 mg/dL (8-26) 6 mg/dL (8-26) Creatinine 1.0 mg/dL (0.7-1.3) 1.0 mg/dL (0.7-1.3) Estimated GFR (Cockcroft-Gault) 79.4 79.4 Glucose Level 112 mg/dL (70-99) 102 mg/dL (70-99) Calcium Level 7.6 mg/dL (8.5-10.1) 7.8 mg/dL (8.5-10.1) Total Bilirubin 0.7 mg/dL (0.2-1.0) 0.7 mg/dL (0.2-1.0) Direct Bilirubin 0.3 mg/dL (0.0-0.2) Aspartate Amino Transf (AST/SGOT) 22 U/L (15-37) 23 U/L (15-37) Alanine Aminotransferase (ALT/SGPT) 22 U/L (16-63) 21 U/L (16-63) Alkaline Phosphatase 61 U/L (46-116) 54 U/L (46-116) Total Protein 5.1 g/dL (6.4-8.2) 5.7 g/dL (6.4-8.2) Albumin 2.0 g/dL (3.4-5.0) 1.9 g/dL (3.4-5.0) Hepatitis A IgM Antibody Nonreactive (Nonreactive) Hepatitis B Surface Antigen Nonreactive (Nonreactive) Hepatitis B Core IgM Antibody Nonreactive (Nonreactive) Hepatitis C IgG Antibody Nonreactive (Nonreactive) Hemoglobin 11.1 g/dL (13.0-17.5) Hematocrit 31.5 % (39.0-53.0) BUN/Creatinine Ratio 6 (6-20) Albumin/Globulin Ratio 0.5 (1.0-1.7) Lipase 179 U/L (73-393) Laboratory Tests Test 03/28/20 04:00 Hemoglobin 11.1 g/dL (13.0-17.5) Hematocrit 31.5 % (39.0-53.0) Sodium Level 136 mmol/L (136-145) Potassium Level 4.3 mmol/L (3.5-5.1) Chloride Level 102 mmol/L (98-107) Carbon Dioxide Level 27 mmol/L (21-32) Anion Gap 7 (6-14) Blood Urea Nitrogen 6 mg/dL (8-26) Creatinine 1.0 mg/dL (0.7-1.3) Estimated GFR (Cockcroft-Gault) 79.4 BUN/Creatinine Ratio 6 (6-20) Glucose Level 102 mg/dL (70-99) Calcium Level 7.8 mg/dL (8.5-10.1) Total Bilirubin 0.7 mg/dL (0.2-1.0) Aspartate Amino Transf (AST/SGOT) 23 U/L (15-37) Alanine Aminotransferase (ALT/SGPT) 21 U/L (16-63) Alkaline Phosphatase 54 U/L (46-116) Total Protein 5.7 g/dL (6.4-8.2) Albumin 1.9 g/dL (3.4-5.0) Albumin/Globulin Ratio 0.5 (1.0-1.7) Lipase 179 U/L (73-393) Justicifation of Admission Dx: Justifications for Admission: Justification of Admission Dx: Yes JUDE KUMAR MD Mar 28, 2020 14:13
[2020-03-28 14:19] VITALS: BP 132/76
[2020-03-28 19:26] VITALS: BP 117/68
--- NOTE | 2020-03-28 20:24 | PDOC ---
Progress Note Subjective Subjective Abdominal pain, improving. ROS ROS No nausea No vomiting No pain No rash Vital Sign Vital Signs Vital Signs Date Time Temp Pulse Resp B/P (MAP) Pulse Ox O2 Delivery O2 Flow Rate FiO2 03/28/20 20:09 Room Air 03/28/20 19:26 98.0 95 18 117/68 (84) 92 98.0 03/28/20 16:25 2.0 Physical Exam PHYSICAL EXAM GENERAL: NAD, Alert HEENT: PERRL, OC/OP NECK: Supple, no JVD, no LN LUNGS: Clear HEART: S1S2, no gallop, no murmur ABD: Soft, NT, no organomegaly, no rebound EXT: No edema, no cyanosis SAP BPC ARCHITECT: Alert, oriented x 3, no focal neurologic deficit SKIN: No rash IV: ok Labs Lab Laboratory Tests Test 03/28/20 04:00 Hemoglobin 11.1 g/dL (13.0-17.5) Hematocrit 31.5 % (39.0-53.0) Sodium Level 136 mmol/L (136-145) Potassium Level 4.3 mmol/L (3.5-5.1) Chloride Level 102 mmol/L (98-107) Carbon Dioxide Level 27 mmol/L (21-32) Anion Gap 7 (6-14) Blood Urea Nitrogen 6 mg/dL (8-26) Creatinine 1.0 mg/dL (0.7-1.3) Estimated GFR (Cockcroft-Gault) 79.4 BUN/Creatinine Ratio 6 (6-20) Glucose Level 102 mg/dL (70-99) Calcium Level 7.8 mg/dL (8.5-10.1) Total Bilirubin 0.7 mg/dL (0.2-1.0) Aspartate Amino Transf (AST/SGOT) 23 U/L (15-37) Alanine Aminotransferase (ALT/SGPT) 21 U/L (16-63) Alkaline Phosphatase 54 U/L (46-116) Total Protein 5.7 g/dL (6.4-8.2) Albumin 1.9 g/dL (3.4-5.0) Albumin/Globulin Ratio 0.5 (1.0-1.7) Lipase 179 U/L (73-393) Objective Assessment 49 year-old male with persistently elevated INR of 1.6 despite vitamin K 10 mg sc on 03/24/2020 and 03/25/2020, in the setting of recent acute pancreatitis and antibiotic therapy (Zosyn). No evidence of significant DIC due to elevated fibrinogen levels and normal platelets. Lupus anticoagulant panel, Factor V and VII levels, test for superwarfarins are not back yet. LFT's were not checked today. Plan Plan of Care 1. LFT's, next available. 2. Will test for superwarfarins. 3. FFP x 4 units could be used if mixing studies are normal, for INR reversal prior to surgery. 4. Will follow on the labs. Thank you for the opportunity to see your patient. Please call with any questions. Bandar Leija MD [phone]. Justicifation of Admission Dx: Justifications for Admission: Justification of Admission Dx: Yes Nutrition Consultation Dietary Evaluation: Recommendations by RD: Dietary education by RD, Increase Calorie Intake, Protein supplementation Comments: REC Ensure clear (apple) w/dinner trays while pt on clear liquid diet REC diet advancement past clears within 72 hrs, goal diet cardiac or renal pending labs Expected Outcomes/Goals: diet advancement Interpretation of weight loss: >7.5% in 3 months Malnutrition Findings: Food and Nutrition Intake (Mod: <75% est energy req 7days Weight Status: Overweight KAMILAH LEIJA MD Mar 28, 2020 20:24
[2020-03-28] MEDS ORDERED: PHYTONADIONE 10 MG/ML ORAL SOLUTION. PO ONE (21:30)
[2020-03-28 22:32] VITALS: BP 125/71
[2020-03-29 02:45] VITALS: BP 111/67
[2020-03-29] MEDS: HYDROmorphone 2 MG/ML VIAL IV PRN ×5 (04:33→23:37)
[2020-03-29 05:44] LABS: BASO % 0 % (0-3); EOS # 0.2 x10^3/uL (0.0-0.7); EOS % 2 % (0-3); HEMATOCRIT 31.8 % (39.0-53.0); LYMPH # 0.8 x10^3/uL (1.0-4.8); LYMPH % 9 % (24-48); MEAN CORPUSCULAR HEMOGLOBIN 32 pg (25-35); MEAN CORPUSCULAR HGB CONC 35 g/dL (31-37); MEAN CORPUSCULAR VOLUME 94 fL (79-100); MONO # 0.9 x10^3/uL (0.0-1.1); MONO % 10 % (0-9); NEUT % 79 % (31-73); PLATELET COUNT 264 x10^3/uL (140-400); WHITE BLOOD COUNT 8.9 x10^3/uL (4.0-11.0)
[2020-03-29 05:56] LABS: ALBUMIN/GLOBULIN RATIO 0.5 (1.0-1.7); CALCIUM 8.2 mg/dL (8.5-10.1); CREATININE 1.1 mg/dL (0.7-1.3); GFR 71.1; PROTHROMBIN TIME PATIENT 18.8 SEC (11.7-14.0); TOTAL BILIRUBIN 0.8 mg/dL (0.2-1.0)
[2020-03-29] MEDS: PIPERACILLIN/TAZOBACTAM 3.375 GM in IV NORMAL SALINE 50ML 50 ML IV SCH ×4 (06:04→23:37)
[2020-03-29 07:00] VITALS: BP 108/69
[2020-03-29] MEDS: LACTOBACILLUS RHAMNOSUS GG 1 CAPSULE. PO SCH ×2 (08:28→21:27)
[2020-03-29] MEDS: PANTOPRAZOLE IV PUSH 40 MG VIAL. IVP SCH ×2 (08:29→17:37)
[2020-03-29] MEDS: POLYETHYLENE GLYCOL 3350 17 GM PACKET. PO SCH (08:30)
[2020-03-29] MEDS: POTASSIUM CL 40MEQ IN 0.9%NACL 1,000 ML IV SCH ×2 (09:35→20:00)
[2020-03-29 10:23] VITALS: BP 126/79
--- NOTE | 2020-03-29 12:00 | PDOC ---
G I PROGRESS NOTE Subjective Minor left near-epigastric discomfort. Physical Exam Lungs clear. RRR Abdomen soft, minimally tender upper abdomen. Review of Relevant I have reviewed the following items lucretia (where applicable) has been applied. Labs Laboratory Tests Test 03/28/20 04:00 03/29/20 05:10 Hemoglobin 11.1 g/dL (13.0-17.5) 11.0 g/dL (13.0-17.5) Hematocrit 31.5 % (39.0-53.0) 31.8 % (39.0-53.0) Sodium Level 136 mmol/L (136-145) 136 mmol/L (136-145) Potassium Level 4.3 mmol/L (3.5-5.1) 4.0 mmol/L (3.5-5.1) Chloride Level 102 mmol/L (98-107) 102 mmol/L (98-107) Carbon Dioxide Level 27 mmol/L (21-32) 26 mmol/L (21-32) Anion Gap 7 (6-14) 8 (6-14) Blood Urea Nitrogen 6 mg/dL (8-26) 6 mg/dL (8-26) Creatinine 1.0 mg/dL (0.7-1.3) 1.1 mg/dL (0.7-1.3) Estimated GFR (Cockcroft-Gault) 79.4 71.1 BUN/Creatinine Ratio 6 (6-20) 5 (6-20) Glucose Level 102 mg/dL (70-99) 115 mg/dL (70-99) Calcium Level 7.8 mg/dL (8.5-10.1) 8.2 mg/dL (8.5-10.1) Total Bilirubin 0.7 mg/dL (0.2-1.0) 0.8 mg/dL (0.2-1.0) Aspartate Amino Transf (AST/SGOT) 23 U/L (15-37) 24 U/L (15-37) Alanine Aminotransferase (ALT/SGPT) 21 U/L (16-63) 22 U/L (16-63) Alkaline Phosphatase 54 U/L (46-116) 56 U/L (46-116) Total Protein 5.7 g/dL (6.4-8.2) 6.0 g/dL (6.4-8.2) Albumin 1.9 g/dL (3.4-5.0) 2.0 g/dL (3.4-5.0) Albumin/Globulin Ratio 0.5 (1.0-1.7) 0.5 (1.0-1.7) Lipase 179 U/L (73-393) White Blood Count 8.9 x10^3/uL (4.0-11.0) Red Blood Count 3.40 x10^6/uL (4.30-5.70) Mean Corpuscular Volume 94 fL (79-100) Mean Corpuscular Hemoglobin 32 pg (25-35) Mean Corpuscular Hemoglobin Concent 35 g/dL (31-37) Red Cell Distribution Width 14.0 % (11.5-14.5) Platelet Count 264 x10^3/uL (140-400) Neutrophils (%) (Auto) 79 % (31-73) Lymphocytes (%) (Auto) 9 % (24-48) Monocytes (%) (Auto) 10 % (0-9) Eosinophils (%) (Auto) 2 % (0-3) Basophils (%) (Auto) 0 % (0-3) Neutrophils # (Auto) 7.0 x10^3/uL (1.8-7.7) Lymphocytes # (Auto) 0.8 x10^3/uL (1.0-4.8) Monocytes # (Auto) 0.9 x10^3/uL (0.0-1.1) Eosinophils # (Auto) 0.2 x10^3/uL (0.0-0.7) Basophils # (Auto) 0.0 x10^3/uL (0.0-0.2) Prothrombin Time 18.8 SEC (11.7-14.0) Prothromb Time International Ratio 1.6 (0.8-1.1) Laboratory Tests Test 03/29/20 05:10 White Blood Count 8.9 x10^3/uL (4.0-11.0) Red Blood Count 3.40 x10^6/uL (4.30-5.70) Hemoglobin 11.0 g/dL (13.0-17.5) Hematocrit 31.8 % (39.0-53.0) Mean Corpuscular Volume 94 fL (79-100) Mean Corpuscular Hemoglobin 32 pg (25-35) Mean Corpuscular Hemoglobin Concent 35 g/dL (31-37) Red Cell Distribution Width 14.0 % (11.5-14.5) Platelet Count 264 x10^3/uL (140-400) Neutrophils (%) (Auto) 79 % (31-73) Lymphocytes (%) (Auto) 9 % (24-48) Monocytes (%) (Auto) 10 % (0-9) Eosinophils (%) (Auto) 2 % (0-3) Basophils (%) (Auto) 0 % (0-3) Neutrophils # (Auto) 7.0 x10^3/uL (1.8-7.7) Lymphocytes # (Auto) 0.8 x10^3/uL (1.0-4.8) Monocytes # (Auto) 0.9 x10^3/uL (0.0-1.1) Eosinophils # (Auto) 0.2 x10^3/uL (0.0-0.7) Basophils # (Auto) 0.0 x10^3/uL (0.0-0.2) Prothrombin Time 18.8 SEC (11.7-14.0) Prothromb Time International Ratio 1.6 (0.8-1.1) Sodium Level 136 mmol/L (136-145) Potassium Level 4.0 mmol/L (3.5-5.1) Chloride Level 102 mmol/L (98-107) Carbon Dioxide Level 26 mmol/L (21-32) Anion Gap 8 (6-14) Blood Urea Nitrogen 6 mg/dL (8-26) Creatinine 1.1 mg/dL (0.7-1.3) Estimated GFR (Cockcroft-Gault) 71.1 BUN/Creatinine Ratio 5 (6-20) Glucose Level 115 mg/dL (70-99) Calcium Level 8.2 mg/dL (8.5-10.1) Total Bilirubin 0.8 mg/dL (0.2-1.0) Aspartate Amino Transf (AST/SGOT) 24 U/L (15-37) Alanine Aminotransferase (ALT/SGPT) 22 U/L (16-63) Alkaline Phosphatase 56 U/L (46-116) Total Protein 6.0 g/dL (6.4-8.2) Albumin 2.0 g/dL (3.4-5.0) Albumin/Globulin Ratio 0.5 (1.0-1.7) Bulk of coagulation w/u still pending. Vitals/I & O Vital Sign - Last 24 Hours 03/28/20 03/28/20 03/28/20 03/28/20 14:19 15:55 16:25 19:26 Temp 98.0 98.0 98.0 98.0 Pulse 66 95 Resp 19 18 18 B/P (MAP) 132/76 (94) 117/68 (84) Pulse Ox 94 94 94 92 O2 Delivery Room Air Room Air Room Air Room Air O2 Flow Rate 2.0 2.0 03/28/20 03/28/20 03/28/20 03/28/20 20:07 20:09 22:32 23:43 Temp 97.8 97.8 Pulse 72 Resp 18 B/P (MAP) 125/71 (89) Pulse Ox 94 O2 Delivery Room Air Room Air Room Air Room Air 03/29/20 03/29/20 03/29/20 03/29/20 02:45 07:00 08:00 09:34 Temp 98.1 98.1 98.1 98.1 Pulse 69 72 Resp 18 18 B/P (MAP) 111/67 (82) 108/69 (82) Pulse Ox 95 96 O2 Delivery Room Air Room Air Room Air Room Air 03/29/20 03/29/20 10:15 10:23 Temp 98.2 98.2 Pulse 64 Resp 18 B/P (MAP) 126/79 (95) Pulse Ox 95 O2 Delivery Room Air Room Air Intake and Output 03/28/20 03/28/20 03/29/20 15:00 23:00 07:00 Intake Total 770 ml 1160 ml 850 ml Balance 770 ml 1160 ml 850 ml Assessment Probable biliary pancreatitis, stable. Coagulopathy? W/u in progress. Plan of Care: Continue current Tx, Mgmt Plan of Care Note Await pending studies. Will need to consider TPN if not operated soon. Will need f/u CT early next week if no surgery. Justicifation of Admission Dx: Justifications for Admission: Justification of Admission Dx: Yes JOSEPH CRUZ MD Mar 29, 2020 12:00
--- NOTE | 2020-03-29 13:32 | PDOC ---
SURGICAL PROGRESS NOTE Subjective Pt feels somewhat better, Vital Signs Vital Signs Date Time Temp Pulse Resp B/P (MAP) Pulse Ox O2 Delivery O2 Flow Rate FiO2 03/29/20 10:23 98.2 64 18 126/79 (95) 95 Room Air 98.2 03/28/20 16:25 2.0 I&O Intake and Output 03/29/20 07:00 Intake Total 2780 ml Balance 2780 ml Intake Oral 2130 ml IV Total 650 ml # Voids 2 General: Alert, Oriented X3, Cooperative, No acute distress Abdomen: Soft, Other (mild TTP periumbilical) Labs Laboratory Tests Test 03/28/20 04:00 03/29/20 05:10 Hemoglobin 11.1 g/dL (13.0-17.5) 11.0 g/dL (13.0-17.5) Hematocrit 31.5 % (39.0-53.0) 31.8 % (39.0-53.0) Sodium Level 136 mmol/L (136-145) 136 mmol/L (136-145) Potassium Level 4.3 mmol/L (3.5-5.1) 4.0 mmol/L (3.5-5.1) Chloride Level 102 mmol/L (98-107) 102 mmol/L (98-107) Carbon Dioxide Level 27 mmol/L (21-32) 26 mmol/L (21-32) Anion Gap 7 (6-14) 8 (6-14) Blood Urea Nitrogen 6 mg/dL (8-26) 6 mg/dL (8-26) Creatinine 1.0 mg/dL (0.7-1.3) 1.1 mg/dL (0.7-1.3) Estimated GFR (Cockcroft-Gault) 79.4 71.1 BUN/Creatinine Ratio 6 (6-20) 5 (6-20) Glucose Level 102 mg/dL (70-99) 115 mg/dL (70-99) Calcium Level 7.8 mg/dL (8.5-10.1) 8.2 mg/dL (8.5-10.1) Total Bilirubin 0.7 mg/dL (0.2-1.0) 0.8 mg/dL (0.2-1.0) Aspartate Amino Transf (AST/SGOT) 23 U/L (15-37) 24 U/L (15-37) Alanine Aminotransferase (ALT/SGPT) 21 U/L (16-63) 22 U/L (16-63) Alkaline Phosphatase 54 U/L (46-116) 56 U/L (46-116) Total Protein 5.7 g/dL (6.4-8.2) 6.0 g/dL (6.4-8.2) Albumin 1.9 g/dL (3.4-5.0) 2.0 g/dL (3.4-5.0) Albumin/Globulin Ratio 0.5 (1.0-1.7) 0.5 (1.0-1.7) Lipase 179 U/L (73-393) White Blood Count 8.9 x10^3/uL (4.0-11.0) Red Blood Count 3.40 x10^6/uL (4.30-5.70) Mean Corpuscular Volume 94 fL (79-100) Mean Corpuscular Hemoglobin 32 pg (25-35) Mean Corpuscular Hemoglobin Concent 35 g/dL (31-37) Red Cell Distribution Width 14.0 % (11.5-14.5) Platelet Count 264 x10^3/uL (140-400) Neutrophils (%) (Auto) 79 % (31-73) Lymphocytes (%) (Auto) 9 % (24-48) Monocytes (%) (Auto) 10 % (0-9) Eosinophils (%) (Auto) 2 % (0-3) Basophils (%) (Auto) 0 % (0-3) Neutrophils # (Auto) 7.0 x10^3/uL (1.8-7.7) Lymphocytes # (Auto) 0.8 x10^3/uL (1.0-4.8) Monocytes # (Auto) 0.9 x10^3/uL (0.0-1.1) Eosinophils # (Auto) 0.2 x10^3/uL (0.0-0.7) Basophils # (Auto) 0.0 x10^3/uL (0.0-0.2) Prothrombin Time 18.8 SEC (11.7-14.0) Prothromb Time International Ratio 1.6 (0.8-1.1) Laboratory Tests Test 03/29/20 05:10 White Blood Count 8.9 x10^3/uL (4.0-11.0) Red Blood Count 3.40 x10^6/uL (4.30-5.70) Hemoglobin 11.0 g/dL (13.0-17.5) Hematocrit 31.8 % (39.0-53.0) Mean Corpuscular Volume 94 fL (79-100) Mean Corpuscular Hemoglobin 32 pg (25-35) Mean Corpuscular Hemoglobin Concent 35 g/dL (31-37) Red Cell Distribution Width 14.0 % (11.5-14.5) Platelet Count 264 x10^3/uL (140-400) Neutrophils (%) (Auto) 79 % (31-73) Lymphocytes (%) (Auto) 9 % (24-48) Monocytes (%) (Auto) 10 % (0-9) Eosinophils (%) (Auto) 2 % (0-3) Basophils (%) (Auto) 0 % (0-3) Neutrophils # (Auto) 7.0 x10^3/uL (1.8-7.7) Lymphocytes # (Auto) 0.8 x10^3/uL (1.0-4.8) Monocytes # (Auto) 0.9 x10^3/uL (0.0-1.1) Eosinophils # (Auto) 0.2 x10^3/uL (0.0-0.7) Basophils # (Auto) 0.0 x10^3/uL (0.0-0.2) Prothrombin Time 18.8 SEC (11.7-14.0) Prothromb Time International Ratio 1.6 (0.8-1.1) Sodium Level 136 mmol/L (136-145) Potassium Level 4.0 mmol/L (3.5-5.1) Chloride Level 102 mmol/L (98-107) Carbon Dioxide Level 26 mmol/L (21-32) Anion Gap 8 (6-14) Blood Urea Nitrogen 6 mg/dL (8-26) Creatinine 1.1 mg/dL (0.7-1.3) Estimated GFR (Cockcroft-Gault) 71.1 BUN/Creatinine Ratio 5 (6-20) Glucose Level 115 mg/dL (70-99) Calcium Level 8.2 mg/dL (8.5-10.1) Total Bilirubin 0.8 mg/dL (0.2-1.0) Aspartate Amino Transf (AST/SGOT) 24 U/L (15-37) Alanine Aminotransferase (ALT/SGPT) 22 U/L (16-63) Alkaline Phosphatase 56 U/L (46-116) Total Protein 6.0 g/dL (6.4-8.2) Albumin 2.0 g/dL (3.4-5.0) Albumin/Globulin Ratio 0.5 (1.0-1.7) Problem List gallstone pancreatitis cont coagulopathy w/u plan cholecystectomy pending this. Justicifation of Admission Dx: Justifications for Admission: Justification of Admission Dx: Yes JUDE KUMAR MD Mar 29, 2020 13:32
--- NOTE | 2020-03-29 14:06 | PN ---
DATE: 03/29/2020 SUBJECTIVE: The patient is resting, slightly propped up in bed, in no apparent distress, awake, alert, continued to have some back pain, but generally has an uneventful night. The nursing staff did not voice any concerns that he had an uneventful night. He has had his Doppler ultrasound, which showed no evidence of deep vein thrombosis in both lower extremities. Apparently, he was given another 10 mg of vitamin K yesterday; however, his prothrombin time this morning was 18.8 and INR of 1.6, which has been ____. All his hepatitis serology was negative. His chemistry this morning showed a serum sodium of 136, potassium of 4, chloride 102, bicarbonate 26, anion gap of 8, BUN 6, creatinine 1.1. Liver enzymes are all normal. PHYSICAL EXAMINATION: GENERAL: When I examined him, he looked pale. No jaundice, cyanosis or thyromegaly. No jugular venous distention. No limb edema. VITAL SIGNS: His heart rate was 72, blood pressure was 108/69, temperature 98, respiratory rate 18, and oxygen saturation was 96% on room air. The rest of clinical exam is stable, has not really changed. His intake over the last 24 hours was 1400. No output was recorded. As I stated earlier his white cell count was 8900, hemoglobin 11, hematocrit 32, MCV 94 and platelet count 264,000. Chemistry showed serum sodium 136, potassium 4, chloride 102, bicarbonate 26, anion gap of 8, BUN 6, creatinine 1.1, estimated GFR was 71 mL per minute. His glucose was 115, calcium was 8.2. Bilirubin, AST, ALT, alkaline phosphatase are all normal. Total protein was 6, albumin was 2. His prothrombin time was 18.8, INR 1.6. ASSESSMENT: 1. Gallstone pancreatitis, resolving, although the patient continued to complain of abdominal and back pain. His most recent serum lipase is down to 179. 2. Chronic cholecystitis/biliary dyskinesia on hepatobiliary scan. 3. Prolonged prothrombin time, has not been corrected despite receiving 30 mg of vitamin K, after which he was seen by the registered clinical dietitian who ordered multiple labs. The results are still pending at the time of this dictation. PLAN: My plan is to start him on SCDs for DVT prophylaxis. Continue meanwhile with IV fluid. Continue with full liquid diet, should be n.p.o. from midnight to tonight. MITA YEE MD DR: CAROLA/geno JOB#: [id number] / [id number]
[2020-03-29 14:10] VITALS: BP 122/79
[2020-03-29 19:29] VITALS: BP 126/77
[2020-03-29 22:27] VITALS: BP 119/67
[2020-03-30 02:58] VITALS: BP 109/67
[2020-03-30 05:24] LABS: PROTHROMBIN TIME PATIENT 18.8 SEC (11.7-14.0)
[2020-03-30] MEDS: PIPERACILLIN/TAZOBACTAM 3.375 GM in IV NORMAL SALINE 50ML 50 ML IV SCH ×3 (05:40→17:10)
[2020-03-30] MEDS: HYDROmorphone 2 MG/ML VIAL IV PRN ×4 (05:40→19:41)
[2020-03-30] MEDS: POTASSIUM CL 40MEQ IN 0.9%NACL 1,000 ML IV SCH ×2 (06:00→21:47)
[2020-03-30 06:39] VITALS: BP 118/66
[2020-03-30] MEDS: LACTOBACILLUS RHAMNOSUS GG 1 CAPSULE. PO SCH ×2 (09:00→19:41)
[2020-03-30] MEDS: POLYETHYLENE GLYCOL 3350 17 GM PACKET. PO SCH (09:00)
[2020-03-30] MEDS: PANTOPRAZOLE IV PUSH 40 MG VIAL. IVP SCH ×2 (09:42→14:50)
--- NOTE | 2020-03-30 09:44 | PDOC ---
ELMER CRAWFORD BATTALION CHIEF 03/30/20 0944: SURGICAL PROGRESS NOTE Subjective frustrated with still being here no pain Vital Signs Vital Signs Date Time Temp Pulse Resp B/P (MAP) Pulse Ox O2 Delivery O2 Flow Rate FiO2 03/30/20 06:39 98.2 70 18 118/66 (83) 96 Room Air 98.2 I&O Intake and Output 03/30/20 07:00 Intake Total 2130 ml Balance 2130 ml Intake Oral 2130 ml # Voids 2 General: Alert, Oriented X3, Cooperative Abdomen: Soft, Other (NTTP) Labs Laboratory Tests Test 03/29/20 05:10 03/30/20 04:35 White Blood Count 8.9 x10^3/uL (4.0-11.0) Red Blood Count 3.40 x10^6/uL (4.30-5.70) Hemoglobin 11.0 g/dL (13.0-17.5) Hematocrit 31.8 % (39.0-53.0) Mean Corpuscular Volume 94 fL (79-100) Mean Corpuscular Hemoglobin 32 pg (25-35) Mean Corpuscular Hemoglobin Concent 35 g/dL (31-37) Red Cell Distribution Width 14.0 % (11.5-14.5) Platelet Count 264 x10^3/uL (140-400) Neutrophils (%) (Auto) 79 % (31-73) Lymphocytes (%) (Auto) 9 % (24-48) Monocytes (%) (Auto) 10 % (0-9) Eosinophils (%) (Auto) 2 % (0-3) Basophils (%) (Auto) 0 % (0-3) Neutrophils # (Auto) 7.0 x10^3/uL (1.8-7.7) Lymphocytes # (Auto) 0.8 x10^3/uL (1.0-4.8) Monocytes # (Auto) 0.9 x10^3/uL (0.0-1.1) Eosinophils # (Auto) 0.2 x10^3/uL (0.0-0.7) Basophils # (Auto) 0.0 x10^3/uL (0.0-0.2) Prothrombin Time 18.8 SEC (11.7-14.0) 18.8 SEC (11.7-14.0) Prothromb Time International Ratio 1.6 (0.8-1.1) 1.6 (0.8-1.1) Sodium Level 136 mmol/L (136-145) Potassium Level 4.0 mmol/L (3.5-5.1) Chloride Level 102 mmol/L (98-107) Carbon Dioxide Level 26 mmol/L (21-32) Anion Gap 8 (6-14) Blood Urea Nitrogen 6 mg/dL (8-26) Creatinine 1.1 mg/dL (0.7-1.3) Estimated GFR (Cockcroft-Gault) 71.1 BUN/Creatinine Ratio 5 (6-20) Glucose Level 115 mg/dL (70-99) Calcium Level 8.2 mg/dL (8.5-10.1) Total Bilirubin 0.8 mg/dL (0.2-1.0) Aspartate Amino Transf (AST/SGOT) 24 U/L (15-37) Alanine Aminotransferase (ALT/SGPT) 22 U/L (16-63) Alkaline Phosphatase 56 U/L (46-116) Total Protein 6.0 g/dL (6.4-8.2) Albumin 2.0 g/dL (3.4-5.0) Albumin/Globulin Ratio 0.5 (1.0-1.7) Laboratory Tests Test 03/30/20 04:35 Prothrombin Time 18.8 SEC (11.7-14.0) Prothromb Time International Ratio 1.6 (0.8-1.1) Assessment/Plan INR 1.6, noted hematology notes will review with Dr Hicks--consider some FFP and plan shakeel Justicifation of Admission Dx: Justifications for Admission: Justification of Admission Dx: Yes FABI HICKS MD 03/30/20 0957: SURGICAL PROGRESS NOTE Assessment/Plan Patient seen and examined by me agree with Fly assessment plan we will plan for laparoscopic cholecystectomy tomorrow prior to surgery will receive 2 units of FFP and possibly more if needed during surgery. ELMER CRAWFORD APRN Mar 30, 2020 09:44 FABI HICKS MD Mar 30, 2020 09:57
--- NOTE | 2020-03-30 09:56 | NUR ---
ASSUMED CARE AT THIS TIME. PAIN MEDICATION GIVEN ; RATING A "7". PAIN RADIATES ACROSS THE UPPER ABDOMEN. HE IS TO BE GIVEN LOW FAT DIET TODAY; THEN NPO AT MIDNIGHT TO BE GIVEN 2 PACKS OF FFP IN AM THEN SURGERY JOSE FTERNOON. Stuart WAS INFORMED OF THESE PLANS
--- NOTE | 2020-03-30 10:47 | PDOC ---
Subjective: Subjective: Frustrated still here, not much progress. Now feels pain in left abdomen with coughing or deep breaths - does feel better overall. Asks if he can eat today. Objective: Objective: D/w nurse. Vital Signs: Vital Signs Date Time Temp Pulse Resp B/P (MAP) Pulse Ox O2 Delivery O2 Flow Rate FiO2 03/30/20 09:54 Room Air 03/30/20 09:43 16 03/30/20 06:39 98.2 70 118/66 (83) 96 98.2 Labs: Laboratory Tests Test 03/30/20 04:35 Prothrombin Time 18.8 SEC Prothromb Time International Ratio 1.6 Imaging: LE US 03/28 Impression: No evidence of DVT in the bilateral lower extremity venous system. PE: GEN: NAD, sitting on edge of bed - looks better LUNGS: CTAB HEART: RRR ABD: soft, uncomfortable NEURO/PSYCH: A & O 3 A/P: Gallstone pancreatitis, coagulopathy -- Since I have seen, plans for FFP and possible cholecystectomy tomorrow. Will follow. Justicifation of Admission Dx: Justifications for Admission: Justification of Admission Dx: Yes JEREMIAH LOPEZ Mar 30, 2020 10:47
[2020-03-30 11:00] VITALS: BP 129/79
--- NOTE | 2020-03-30 11:02 | PN ---
DATE: 03/30/2020 SUBJECTIVE: The patient is resting, slightly propped up in bed, in no apparent distress, continued to have some mild abdominal pain. Denied any nausea or vomiting. He is n.p.o. I spoke with , crm analyst who I said to go ahead and transfuse him 4 units of fresh frozen plasma and to proceed with surgery as his prothrombin time and INR continued to be prolonged at 18.8 and 1.6. OBJECTIVE: GENERAL: When I saw him this morning, he looked well and was clearly in no apparent respiratory distress, slightly pale, no jaundice, cyanosis or thyromegaly. No jugular venous distention. No limb edema. VITAL SIGNS: Heart rate was 70, blood pressure was 118/66, temperature was 98.2, respiratory rate was 18 and oxygen saturation was 96%. HEAD, EYES, EARS, NOSE AND THROAT: Normocephalic, atraumatic. NECK: Supple. HEART: Showed normal first and second heart sounds. No gallop or murmur. CHEST: Clear to auscultation. No crepitation or rhonchi. ABDOMEN: Distended, soft. NEUROLOGIC: He is awake, alert, responding appropriately. All cranial nerves are intact. He moves extremities without difficulty. He ambulates without assistance or assistive devices. His intake was 2000, 718 output was recorded. LABORATORY DATA: As of yesterday, his white cell count was 8900, hemoglobin 11, hematocrit 32, MCV 94 and platelet count 264,000. His chemistry showed a serum sodium 136, potassium 4, chloride 102, bicarbonate 26, anion gap of 8, BUN 6, creatinine 1.1, estimated GFR was 71 mL per minute. His glucose 115, calcium was 8.2. Total bilirubin, AST, ALT, alkaline phosphatase were normal. Total protein 6, albumin 2. His prothrombin time this morning was 18.8, INR 1.6. ASSESSMENT AND PLAN: 1. Gallstone pancreatitis, resolving, though the patient continued to have complaint of abdominal back pain. His most recent serum lipase is down to 179. 2. Chronic cholecystitis/biliary dyskinesia on hepatobiliary scan. 3. Prolonged prothrombin time that has not been corrected despite receiving 30 mg of vitamin K for which he was seen by the crm analyst who ordered multiple labs. I spoke to him this morning and said to go ahead and transfuse him 4 units of fresh frozen plasma and to proceed with surgery. I discussed this with the nursing staff to inform the surgical team. MITA YEE MD DR: CAROLA/geno JOB#: [id number] / [id number]
--- NOTE | 2020-03-30 11:34 | NUR ---
SS following up with discharge planning. SS reviewed pt chart and discussed with pt RN. Pt is currently on room air and IV Zosyn. Pt scheduled for surgery on 03/31/2020. Pt to received FFP tomorrow per RN. SS will continue to follow for discharge planning.
[2020-03-30 15:00] VITALS: BP 115/65
--- NOTE | 2020-03-30 18:08 | NUR ---
Shantanu has had a fair day. He tolerated the low fat diet poorly; increase discomfort. consent for surgery obtained. He is to be NPO after midnight and receive units FFP in early am. He has been medicated x2 with Dilaudid.
[2020-03-30 19:22] VITALS: BP 114/71
[2020-03-30 23:06] VITALS: BP 109/68
[2020-03-31] VITALS (15 sets, daily range): BP systolic 108–153; BP diastolic 65–80
[2020-03-31] MEDS: PIPERACILLIN/TAZOBACTAM 3.375 GM in IV NORMAL SALINE 50ML 50 ML IV SCH ×4 (00:39→18:00)
[2020-03-31] MEDS: HYDROmorphone 2 MG/ML VIAL IV PRN ×7 (00:40→16:52)
[2020-03-31] MEDS: POTASSIUM CL 40MEQ IN 0.9%NACL 1,000 ML IV SCH ×3 (02:00→22:00)
[2020-03-31] MEDS ORDERED: IV RINGERS,LACTATED 1000ML 1,000 ML IV SCH (07:00)
[2020-03-31] MEDS ORDERED: LIDOCAINE 1% PF 2 ML VIAL. ID PRN (07:00)
[2020-03-31] MEDS ORDERED: PROCHLORPERAZINE 10 MG/2 ML VIAL. IV PRN (07:00)
[2020-03-31] MEDS ORDERED: ONDANSETRON PF 4 MG/2 ML VIAL. IV PRN (07:00)
[2020-03-31] MEDS ORDERED: fentaNYL PF VIAL 100 MCG/2 ML VIAL IV PRN ×2 (07:00)
[2020-03-31 08:27] LABS: ALBUMIN/GLOBULIN RATIO 0.5 (1.0-1.7); CALCIUM 8.2 mg/dL (8.5-10.1); CREATININE 1.1 mg/dL (0.7-1.3); GFR 71.1; POTASSIUM 4.1 mmol/L (3.5-5.1); TOTAL BILIRUBIN 0.6 mg/dL (0.2-1.0); TOTAL PROTEIN 6.3 g/dL (6.4-8.2)
[2020-03-31 08:49] LABS: HEMATOCRIT 31.5 % (39.0-53.0); HEMOGLOBIN 10.9 g/dL (13.0-17.5); RED BLOOD COUNT 3.35 x10^6/uL (4.30-5.70); RED CELL DISTRIBUTION WIDTH 13.7 % (11.5-14.5); WHITE BLOOD COUNT 8.3 x10^3/uL (4.0-11.0)
[2020-03-31] MEDS: POLYETHYLENE GLYCOL 3350 17 GM PACKET. PO SCH (09:00)
[2020-03-31 09:44] LABS: PROTHROMBIN TIME PATIENT 18.1 SEC (11.7-14.0)
--- NOTE | 2020-03-31 09:50 | PDOC ---
Subjective: Subjective: Still some left-sided pain w/ movement. Objective: Objective: D/w nurse - call in to blood bank to discuss administration/timing of FFP. Reviewed chart - felt worse after eating yesterday. Vital Signs: Vital Signs Date Time Temp Pulse Resp B/P (MAP) Pulse Ox O2 Delivery O2 Flow Rate FiO2 03/31/20 07:00 97.5 72 20 119/72 (88) 99 Room Air 97.5 03/31/20 01:10 2.0 Labs: Laboratory Tests Test 03/31/20 04:10 White Blood Count 8.3 x10^3/uL Red Blood Count 3.35 x10^6/uL Hemoglobin 10.9 g/dL Hematocrit 31.5 % Mean Corpuscular Volume 94 fL Mean Corpuscular Hemoglobin 33 pg Mean Corpuscular Hemoglobin Concent 35 g/dL Red Cell Distribution Width 13.7 % Platelet Count 313 x10^3/uL Prothrombin Time 18.1 SEC Prothromb Time International Ratio 1.5 Sodium Level 135 mmol/L Potassium Level 4.1 mmol/L Chloride Level 101 mmol/L Carbon Dioxide Level 24 mmol/L Anion Gap 10 Blood Urea Nitrogen 7 mg/dL Creatinine 1.1 mg/dL Estimated GFR (Cockcroft-Gault) 71.1 BUN/Creatinine Ratio 6 Glucose Level 86 mg/dL Calcium Level 8.2 mg/dL Total Bilirubin 0.6 mg/dL Aspartate Amino Transf (AST/SGOT) 39 U/L Alanine Aminotransferase (ALT/SGPT) 31 U/L Alkaline Phosphatase 55 U/L Total Protein 6.3 g/dL Albumin 2.0 g/dL Albumin/Globulin Ratio 0.5 Lipase 282 U/L PE: GEN: NAD LUNGS: CTAB HEART: RRR ABD: soft, mildly tender left epigastrium/LUQ NEURO/PSYCH: A & O 3 A/P: Gallstone pancreatitis, mild coagulopathy -- Plans for FFP transfusions and cholecystectomy today, will follow. Justicifation of Admission Dx: Justifications for Admission: Justification of Admission Dx: Yes JEREMIAH LOPEZ Mar 31, 2020 09:50
[2020-03-31] MEDS: LACTOBACILLUS RHAMNOSUS GG 1 CAPSULE. PO SCH ×2 (10:14→20:24)
[2020-03-31] MEDS: PANTOPRAZOLE IV PUSH 40 MG VIAL. IVP SCH ×2 (10:14→17:59)
[2020-03-31 10:42] LABS: FACTOR V ASSAY SEE SEPARATE REPORT; FACTOR VII ASSAY SEE SEPARATE REPORT
[2020-03-31 10:43] LABS: LUPUS ANTICOAGULANT SEE SEPARATE REPORT
--- NOTE | 2020-03-31 10:52 | NUR ---
SS following up with discharge planning. SS reviewed pt chart and discussed with pt RN. Pt is currently on room air and IV Zosyn. Pt having FFP at 1100 today and then surgery at 1500 today. SS will continue to follow for discharge planning.
--- NOTE | 2020-03-31 12:12 | PN ---
DATE: 03/31/2020 SUBJECTIVE: The patient is resting, slightly propped up in bed, in no apparent respiratory distress. He continued to complain of abdominal pain, but denied any nausea or vomiting. He apparently is scheduled for a laparoscopic cholecystectomy this afternoon. He is in the process of receiving fresh frozen plasma. PHYSICAL EXAMINATION: GENERAL: When I examined him this morning, he looked pale, but no jaundice, cyanosis, or thyromegaly. No jugular venous distention. No limb edema. VITAL SIGNS: His heart rate was 72, blood pressure was 119/72, temperature 97.5, respiratory rate was 20, and oxygen saturation was 99%. The rest of clinical examination is stable. His intake over the last 24 hours was 2100, no output was recorded. LABORATORY DATA: His lab work this morning showed a prothrombin time of 18.1, INR of 1.5. His white cell count was 8300, hemoglobin 11, hematocrit 32, MCV 94, and platelet count 313,000. His chemistry showed a serum sodium of 135, potassium 4.1, chloride 101, bicarbonate 24, anion gap of 10, BUN 7, creatinine 1.1, estimated GFR was 71 mL per minute. His glucose was 86, calcium was 8.2. Total bilirubin, ALT, alkaline phosphatase normal. AST slightly elevated. Total protein was 6.3, albumin was 2. His lipase was 282. ASSESSMENT AND PLAN: 1. Acute gallstone pancreatitis, resolving though the patient continued to have some complaint of abdominal and back pain. His most recent serum lipase was 282. 2. Chronic cholecystitis/biliary dyskinesia on hepatobiliary scan. 3. Prolonged prothrombin time that has not been corrected despite receiving 30 mg of vitamin K, for which he is now receiving fresh frozen plasma and he is scheduled for laparoscopic cholecystectomy at 3:00 this afternoon. MITA YEE MD DR: CAROLA/geno JOB#: [id number] / [id number]
--- NOTE | 2020-03-31 13:52 | NUR ---
Patient taken off unit to surgery prep area.
[2020-03-31] MEDS ORDERED: IOHEXOL 300 MG/ML 50 ML VIAL. ONE (14:38)
[2020-03-31] MEDS ORDERED: BUPIVACAINE-EPI 0.25%-1:200000 MPF 30 ML VIAL. ONE (14:38)
[2020-03-31] MEDS ORDERED: SURGICEL HEMOSTAT 4X8 EACH. ONE (14:38)
[2020-03-31] MEDS ORDERED: fentaNYL PF VIAL 250 MCG/5 ML VIAL ONE (14:43)
[2020-03-31] MEDS ORDERED: ROCURONIUM 50 MG/5 ML VIAL. ONE (14:43)
[2020-03-31] MEDS ORDERED: GLYCOPYRROLATE 1 MG/5 ML VIAL. ONE (15:30)
[2020-03-31] MEDS ORDERED: NEOSTIGMINE METHYLSULFATE 5 MG/5 ML SYRINGE. ONE (15:30)
[2020-03-31] MEDS ORDERED: ONDANSETRON PF 4 MG/2 ML VIAL. ONE ×2 (15:33→15:39)
[2020-03-31] MEDS ORDERED: SEVOFLURANE 31 TO 60 MINUTES. IH ONE (15:33)
[2020-03-31] MEDS ORDERED: DEXAMETHASONE SOD PHOS 20 MG/5 ML VIAL. ONE (15:39)
[2020-03-31] MEDS ORDERED: LIDOCAINE 2% PF 5 ML VIAL. ONE (15:39)
[2020-03-31] MEDS ORDERED: PROPOFOL 10 MG/ML (20ML) VIAL. IV ONE ×2 (15:39→15:45)
--- NOTE | 2020-03-31 15:41 | PDOC4 ---
Operative Note Operative Note Date: 03/31/2020 at 1538 Preoperative diagnosis: Gallstone pancreatitis Postoperative diagnosis: Same Procedure: Laparoscopic cholecystectomy with intraoperative cholangiograms Surgeon: Ignacio Specimen: Gallbladder Dictation: Patient is a 49-year-old male was admitted to the hospital with gallstone pancreatitis his pancreatitis resolved coags were elevated and he had a work-up by hematology H. Barclay he has a factor VII deficiency he did receive 2 units of FFP prior to surgery. The procedure of laparoscopic cholecystectomy was explained to the patient detail was benefits were also discussed including bleeding infection injury to intra-abdominal contents possibly necessitating further or open operations alternatives to this procedure also discussed with the patient who seemed to understand and gave both verbal and written consent to have the procedure performed. Patient was taken to the operating room placed in the supine position general anesthesia was initiated once patient was sleeping in bed his abdomen was prepped and draped usual sterile fashion using ChloraPrep. Area just below the umbilicus was injected with quarter percent Marcaine with epinephrine incision was made with a blade scalpel and a varies needle was placed within the abdomen creating pneumoperitoneum once this was complete 11 mm port was placed and a 5 mm camera was placed within the abdomen which was inspected no other red maladies were noted. 5 mm port was placed in the epigastrium a 5 mm port was placed in the right lateral abdomen and 5 mm port was placed in the right midabdomen. The dome of the gallbladder is grasped retracted cephalad the infundibulum of the gallbladder was retracted laterally exposing the triangle that here tissues the triangle were taken down with blunt dissection exposing the cystic duct which was clipped on the gallbladder side and partially open with Endo Jose scissors cholangiogram catheter was placed to the anterior abdominal wall through a 14-gauge Angiocath this was placed within the cystic duct clipped into place and a cholangiogram was shot which showed good retrograde and antegrade flow of dye into the hepatic radicles and into the duodenum without any evidence of obstruction. Cholangiogram catheter was removed the duct was doubly clipped and transected the cystic duct was doubly clipped and transected the gallbladder was taken off the liver with hook electrocautery placed in Endo Catch bag and removed and the umbilicus the right upper quadrant was irrigated and suctioned dry hemostasis deemed to be appropriate and the pneumoperitoneum was reduced all ports were removed the fascial defect at the umbilicus was closed with a [id number] 0 Vicryl suture and the skin was reapproximated all port sites with 4 subcuticular Monocryl Mastisol Steri-Strips and island dressings were applied. Patient was awakened and extubated in the operating room taken to recovery in stable condition all sponge instrument needle counts listed as correct estimated blood loss 10 mL. FABI HICKS MD Mar 31, 2020 15:41
[2020-03-31] MEDS ORDERED: oxyCODONE/APAP 5/325 1 TAB TABLET PO PRN (15:45)
--- NOTE | 2020-03-31 15:56 | RAD ---
Examination: CHOLANGIOGRAM INTRAOPERATIVE History: Reason: CHOLANGIOGRAMS IN OR WITH C-ARM. FT=0.2min / Spl. Instructions: / History: Comparison/Correlation: None Findings: Fluoroscopy was utilized for 0.2 minutes. A total of 2 fluoroscopic images were provided. Contrast is noted within the common bile duct. No stricture or suspicious filling defect. Cholecystectomy is noted. No significant intrahepatic biliary duct opacification or dilatation. Minimal contrast within the common bile thickening of the duodenum noted. Impression: No stricture or suspicious filling defects involving the common duct. Electronically signed by: Edson Neville MD (03/31/2020 3:53 PM) [id number]
[2020-03-31] MEDS ORDERED: MORPHINE SULFATE 2 MG/ML VIAL. ONE (16:05)
[2020-03-31] MEDS: MORPHINE SULFATE 2 MG/ML VIAL. IV PRN ×2 (16:10→16:20)
[2020-03-31] MEDS ORDERED: HYDROmorphone 2 MG/ML VIAL ONE (16:17)
[2020-03-31] MEDS ORDERED: PROCHLORPERAZINE 10 MG/2 ML VIAL. ONE (16:34)
--- NOTE | 2020-03-31 17:30 | NUR ---
received from recovery. he is alert and oriented. four abdominal Telfa islands are clean dry and intact. he is rating his pain 2-3. ambulated to bathroom; unable to void per urinal. states he voided large amount. oriented to new room. transfer from .
[2020-04-01] MEDS: PIPERACILLIN/TAZOBACTAM 3.375 GM in IV NORMAL SALINE 50ML 50 ML IV SCH ×4 (00:21→18:27)
[2020-04-01 03:01] VITALS: BP 114/66
[2020-04-01] MEDS: HYDROmorphone 2 MG/ML VIAL IV PRN ×2 (03:38→09:27)
[2020-04-01] MEDS: POTASSIUM CL 40MEQ IN 0.9%NACL 1,000 ML IV SCH ×2 (06:14→19:30)
[2020-04-01 06:36] VITALS: BP 115/68
--- NOTE | 2020-04-01 07:19 | PDOC ---
SURGICAL PROGRESS NOTE Subjective Patient doing well minimal abdominal pain no nausea or vomiting Vital Signs Vital Signs Date Time Temp Pulse Resp B/P (MAP) Pulse Ox O2 Delivery O2 Flow Rate FiO2 04/01/20 06:36 97.9 68 18 115/68 (84) 97 Room Air 97.9 03/31/20 17:00 2.0 I&O Intake and Output 04/01/20 07:00 Intake Total 2409 ml Output Total 11 ml Balance 2398 ml IV Total 2034 ml Blood Product IV Normal Saline Flush 375 ml Output Urine Total 1 ml Estimated Blood Loss 10 ml # Voids 4 # Bowel Movements 1 PATIENT HAS A MELTON: No General: Alert, Oriented X3, Cooperative, mild distress Abdomen: Normal bowel sounds, Soft, Other (Mild incisional tenderness wounds clean dry and intact) Labs Laboratory Tests Test 03/31/20 04:10 White Blood Count 8.3 x10^3/uL (4.0-11.0) Red Blood Count 3.35 x10^6/uL (4.30-5.70) Hemoglobin 10.9 g/dL (13.0-17.5) Hematocrit 31.5 % (39.0-53.0) Mean Corpuscular Volume 94 fL (79-100) Mean Corpuscular Hemoglobin 33 pg (25-35) Mean Corpuscular Hemoglobin Concent 35 g/dL (31-37) Red Cell Distribution Width 13.7 % (11.5-14.5) Platelet Count 313 x10^3/uL (140-400) Prothrombin Time 18.1 SEC (11.7-14.0) Prothromb Time International Ratio 1.5 (0.8-1.1) Sodium Level 135 mmol/L (136-145) Potassium Level 4.1 mmol/L (3.5-5.1) Chloride Level 101 mmol/L (98-107) Carbon Dioxide Level 24 mmol/L (21-32) Anion Gap 10 (6-14) Blood Urea Nitrogen 7 mg/dL (8-26) Creatinine 1.1 mg/dL (0.7-1.3) Estimated GFR (Cockcroft-Gault) 71.1 BUN/Creatinine Ratio 6 (6-20) Glucose Level 86 mg/dL (70-99) Calcium Level 8.2 mg/dL (8.5-10.1) Total Bilirubin 0.6 mg/dL (0.2-1.0) Aspartate Amino Transf (AST/SGOT) 39 U/L (15-37) Alanine Aminotransferase (ALT/SGPT) 31 U/L (16-63) Alkaline Phosphatase 55 U/L (46-116) Total Protein 6.3 g/dL (6.4-8.2) Albumin 2.0 g/dL (3.4-5.0) Albumin/Globulin Ratio 0.5 (1.0-1.7) Lipase 282 U/L (73-393) Assessment/Plan Status post laparoscopic cholecystectomy doing quite well Stable from surgical standpoint Justicifation of Admission Dx: Justifications for Admission: Justification of Admission Dx: Yes FABI HICKS MD Apr 01, 2020 07:19
[2020-04-01] MEDS: PANTOPRAZOLE IV PUSH 40 MG VIAL. IVP SCH (09:00)
[2020-04-01] MEDS: LACTOBACILLUS RHAMNOSUS GG 1 CAPSULE. PO SCH ×2 (09:03→21:19)
[2020-04-01] MEDS: POLYETHYLENE GLYCOL 3350 17 GM PACKET. PO SCH (09:03)
[2020-04-01 09:31] LABS: HEMATOCRIT 32.1 % (39.0-53.0); HEMOGLOBIN 11.2 g/dL (13.0-17.5)
[2020-04-01 09:47] LABS: PROTHROMBIN TIME PATIENT 18.3 SEC (11.7-14.0)
--- NOTE | 2020-04-01 09:59 | PDOC ---
Subjective: Subjective: Ate a little solid food. Just got pain meds so pain about a 1. Passing gas, no stool. Objective: Vital Signs: Vital Signs Date Time Temp Pulse Resp B/P (MAP) Pulse Ox O2 Delivery O2 Flow Rate FiO2 04/01/20 09:27 Room Air 04/01/20 06:36 97.9 68 18 115/68 (84) 97 97.9 03/31/20 17:00 2.0 Labs: Laboratory Tests Test 04/01/20 09:00 Hemoglobin 11.2 g/dL Hematocrit 32.1 % Prothrombin Time 18.3 SEC Prothromb Time International Ratio 1.6 Imaging: IOC 03/31 Impression: No stricture or suspicious filling defects involving the common duct. PE: GEN: NAD,r esting LUNGS: CTAB HEART: RRR ABD: soft, quiet BS, mild incisional tenderness NEURO/PSYCH: A & O 3 A/P: Gallstone pancreatitis Mild coagulopathy S/p cholecystectomy -- Continue per surgery. Justicifation of Admission Dx: Justifications for Admission: Justification of Admission Dx: Yes JEREMIAH LOPEZ Apr 01, 2020 09:58
[2020-04-01 10:04] LABS: CALCIUM 8.1 mg/dL (8.5-10.1); CREATININE 1.1 mg/dL (0.7-1.3); GFR 71.1; POTASSIUM 4.1 mmol/L (3.5-5.1)
[2020-04-01 11:00] VITALS: BP 124/74
--- NOTE | 2020-04-01 13:48 | PN ---
DATE: 04/01/2020 SUBJECTIVE: The patient is resting, sitting on the edge of the bed comfortably, continued to complain of severe pain in his right upper quadrant, requesting intravenous pain medication. He has had his laparoscopic cholecystectomy with intraoperative cholangiogram successfully yesterday. PHYSICAL EXAMINATION: GENERAL: When I saw him today, he looked pale, but no jaundice, cyanosis or thyromegaly. No jugular venous distention. No lower limb edema. VITAL SIGNS: His heart rate was 76, blood pressure 124/74, temperature 97.8, respiratory rate was 18 and oxygen saturation was 96%. HEAD, EYES, EARS, NOSE AND THROAT: Normocephalic, atraumatic. NECK: Supple. HEART: Showed normal first and second heart sounds. No gallop, rub or murmur. CHEST: Clear to auscultation. No crepitation or rhonchi. ABDOMEN: Scaphoid, soft. Tenderness mostly in the right upper quadrant. No guarding or rigidity. No organomegaly. All hernial orifice intact. Bowel sounds normal. NEUROLOGIC: He was awake, alert, responding appropriately. All cranial nerves are intact. He moves all extremities without difficulty, ambulates without assistance or assistive devices. His intake and output are incompletely recorded. LABORATORY DATA: Today showed a prothrombin time to 18.3, INR 1.6. His serum sodium was 136, potassium 4.1, chloride 102, bicarbonate 24, anion gap of 10, BUN 7, creatinine 1.1, estimated GFR was 71 mL per minute. Glucose 127, calcium was 8.1. Serum lipase was 123, hemoglobin 11, hematocrit 32. ASSESSMENT: 1. Gallstone pancreatitis, resolved. 2. Chronic cholecystitis. 3. Biliary dyskinesia, status post laparoscopic cholecystectomy with intrahepatic cholangiogram. 4. Prolonged prothrombin time has been corrected, despite receiving 30 mg of vitamin K. He did receive 4 units of fresh frozen plasma and has had surgery done yesterday. PLAN: My plan is to give him over 1 more night and he will be discharged home tomorrow. MITA YEE MD DR: CAROLA/geno JOB#: [id number] / [id number]
[2020-04-01] MEDS: oxyCODONE/APAP 5/325 1 TAB TABLET PO PRN ×2 (14:47→21:19)
[2020-04-01 15:04] VITALS: BP 113/73
[2020-04-01 18:06] VITALS: BP 109/71
[2020-04-01 22:28] VITALS: BP 106/72
[2020-04-02] MEDS: PIPERACILLIN/TAZOBACTAM 3.375 GM in IV NORMAL SALINE 50ML 50 ML IV SCH ×3 (00:57→12:00)
[2020-04-02] MEDS: POTASSIUM CL 40MEQ IN 0.9%NACL 1,000 ML IV SCH (00:57)
[2020-04-02 02:53] VITALS: BP 125/80
[2020-04-02 04:04] LABS: ALBUMIN 2.4 g/dL (3.4-5.0); ALBUMIN/GLOBULIN RATIO 0.6 (1.0-1.7); CALCIUM 8.5 mg/dL (8.5-10.1); CREATININE 1.1 mg/dL (0.7-1.3); GFR 71.1; POTASSIUM 4.1 mmol/L (3.5-5.1); TOTAL BILIRUBIN 0.4 mg/dL (0.2-1.0); TOTAL PROTEIN 6.5 g/dL (6.4-8.2)
[2020-04-02 06:00] VITALS: BP 115/77
[2020-04-02] MEDS: oxyCODONE/APAP 5/325 1 TAB TABLET PO PRN ×3 (06:09→15:39)
--- NOTE | 2020-04-02 06:41 | NUR ---
Patient states he rested frequently tonight. Patient up ambulating throughout night. Patient states he had a BM and passed gas.
[2020-04-02 07:02] VITALS: BP 132/74
[2020-04-02] MEDS ORDERED: PANTOPRAZOLE 40 MG TABLET.DR. PO SCH (07:30)
[2020-04-02] MEDS: LACTOBACILLUS RHAMNOSUS GG 1 CAPSULE. PO SCH (08:04)
[2020-04-02] MEDS: POLYETHYLENE GLYCOL 3350 17 GM PACKET. PO SCH (08:42)
--- NOTE | 2020-04-02 08:42 | NUR ---
Ambulating hallways with steady gait. Held Miralax this am. States had several stools yesterday and small soft stool this am.
[2020-04-02] MEDS ORDERED: OXYC1TAB15 PO (09:25)
--- NOTE | 2020-04-02 09:29 | PDOC ---
ELMER CRAWFORD [employer]T [employer] SANDER 04/02/20 0929: SURGICAL PROGRESS NOTE Subjective feeling better minimal pain tolerating diet Vital Signs Vital Signs Date Time Temp Pulse Resp B/P (MAP) Pulse Ox O2 Delivery O2 Flow Rate FiO2 04/02/20 07:50 Room Air 04/02/20 07:09 16 04/02/20 07:02 98.3 56 132/74 (93) 98 98.3 I&O Intake and Output 04/02/20 07:00 Intake Total 1480 ml Balance 1480 ml Intake Oral 1480 ml # Voids 4 General: Alert, Oriented X3, Cooperative Abdomen: Soft, Other (lap dressings dry) Labs Laboratory Tests Test 04/01/20 09:00 04/02/20 03:16 Hemoglobin 11.2 g/dL (13.0-17.5) Hematocrit 32.1 % (39.0-53.0) Prothrombin Time 18.3 SEC (11.7-14.0) Prothromb Time International Ratio 1.6 (0.8-1.1) Sodium Level 136 mmol/L (136-145) 137 mmol/L (136-145) Potassium Level 4.1 mmol/L (3.5-5.1) 4.1 mmol/L (3.5-5.1) Chloride Level 102 mmol/L (98-107) 101 mmol/L (98-107) Carbon Dioxide Level 24 mmol/L (21-32) 25 mmol/L (21-32) Anion Gap 10 (6-14) 11 (6-14) Blood Urea Nitrogen 7 mg/dL (8-26) 9 mg/dL (8-26) Creatinine 1.1 mg/dL (0.7-1.3) 1.1 mg/dL (0.7-1.3) Estimated GFR (Cockcroft-Gault) 71.1 71.1 Glucose Level 127 mg/dL (70-99) 108 mg/dL (70-99) Calcium Level 8.1 mg/dL (8.5-10.1) 8.5 mg/dL (8.5-10.1) Lipase 223 U/L (73-393) BUN/Creatinine Ratio 8 (6-20) Total Bilirubin 0.4 mg/dL (0.2-1.0) Aspartate Amino Transf (AST/SGOT) 37 U/L (15-37) Alanine Aminotransferase (ALT/SGPT) 40 U/L (16-63) Alkaline Phosphatase 54 U/L (46-116) Total Protein 6.5 g/dL (6.4-8.2) Albumin 2.4 g/dL (3.4-5.0) Albumin/Globulin Ratio 0.6 (1.0-1.7) Laboratory Tests Test 04/02/20 03:16 Sodium Level 137 mmol/L (136-145) Potassium Level 4.1 mmol/L (3.5-5.1) Chloride Level 101 mmol/L (98-107) Carbon Dioxide Level 25 mmol/L (21-32) Anion Gap 11 (6-14) Blood Urea Nitrogen 9 mg/dL (8-26) Creatinine 1.1 mg/dL (0.7-1.3) Estimated GFR (Cockcroft-Gault) 71.1 BUN/Creatinine Ratio 8 (6-20) Glucose Level 108 mg/dL (70-99) Calcium Level 8.5 mg/dL (8.5-10.1) Total Bilirubin 0.4 mg/dL (0.2-1.0) Aspartate Amino Transf (AST/SGOT) 37 U/L (15-37) Alanine Aminotransferase (ALT/SGPT) 40 U/L (16-63) Alkaline Phosphatase 54 U/L (46-116) Total Protein 6.5 g/dL (6.4-8.2) Albumin 2.4 g/dL (3.4-5.0) Albumin/Globulin Ratio 0.6 (1.0-1.7) Assessment/Plan s/p shakeel ok to ny home from surgical pov FU 2weeks script escribed Justicifation of Admission Dx: Justifications for Admission: Justification of Admission Dx: Yes FABI HICKS MD 04/02/20 1127: SURGICAL PROGRESS NOTE Assessment/Plan Agree with Fly assessment and plan ELMER CRAFWORD APRN Apr 02, 2020 09:29 FABI HICKS MD Apr 02, 2020 11:27
--- NOTE | 2020-04-02 09:38 | PDOC ---
Objective: Objective: D/w nurse - no GI concerns, has been up walking, pain "tolerable," probably DC today. Reviewed chart - stooling. Vital Signs: Vital Signs Date Time Temp Pulse Resp B/P (MAP) Pulse Ox O2 Delivery O2 Flow Rate FiO2 04/02/20 07:50 Room Air 04/02/20 07:09 16 04/02/20 07:02 98.3 56 132/74 (93) 98 98.3 Labs: Laboratory Tests Test 04/02/20 03:16 Sodium Level 137 mmol/L Potassium Level 4.1 mmol/L Chloride Level 101 mmol/L Carbon Dioxide Level 25 mmol/L Anion Gap 11 Blood Urea Nitrogen 9 mg/dL Creatinine 1.1 mg/dL Estimated GFR (Cockcroft-Gault) 71.1 BUN/Creatinine Ratio 8 Glucose Level 108 mg/dL Calcium Level 8.5 mg/dL Total Bilirubin 0.4 mg/dL Aspartate Amino Transf (AST/SGOT) 37 U/L Alanine Aminotransferase (ALT/SGPT) 40 U/L Alkaline Phosphatase 54 U/L Total Protein 6.5 g/dL Albumin 2.4 g/dL Albumin/Globulin Ratio 0.6 PE: GEN: NAD NEURO/PSYCH: sleeping, did not awaken when I knocked and said hello A/P: Gallstone pancreatitis s/p cholecystectomy -- Dc per primary, follow-up w/ surgery as planned Justicifation of Admission Dx: Justifications for Admission: Justification of Admission Dx: Yes JEREMIAH LOPEZ Apr 02, 2020 09:38
[2020-04-02 11:43] VITALS: BP 123/71
[2020-04-02] MEDS ORDERED: PHYT5TAB PO (15:23)
[2020-04-02 15:41] VITALS: BP 118/73
--- NOTE | 2020-04-02 15:45 | NUR ---
Discharge instructions given with prescriptions. Answered questions and concerns. Both pt and verbalized understanding. Pt discharged home accompanied by .
--- NOTE | 2020-04-02 17:15 | DS ---
DATE OF DISCHARGE: HOSPITAL COURSE: The patient was admitted initially at [facility] with severe abdominal pain, was diagnosed with acute pancreatitis. His serum lipase was extremely high at 40,000. CT scan and ultrasound were unrevealing; however, we did a hepatobiliary scan, which showed the patient has chronic cholecystitis/biliary dyskinesia. He was transferred to [facility] after his serum lipase had normalized. Unfortunately, he was found to have some form of coagulopathy that was extensively investigated. He was given 30 mg of vitamin K as well as fresh frozen plasma. He was seen in consultation by the professor of economics as well as the insight leader and eventually, he underwent his laparoscopic cholecystectomy successfully. He did very well postoperatively and was able to tolerate his diet. His pain is much better controlled and decision was made to discharge him home. PHYSICAL EXAMINATION: GENERAL: When I saw him today, he looked well and was clearly in no apparent respiratory distress, pale, but no jaundice, cyanosis, or thyromegaly. No jugular venous distention. No limb edema. VITAL SIGNS: His heart rate was 61, blood pressure was 123/71, temperature was 98.5, respiratory rate was 16, and oxygen saturation was 98%. The rest of clinical exam is stable. LABORATORY DATA: His most recent H and H was 11 and 32. His chemistry showed a serum sodium of 137, potassium 4.1, chloride 101, bicarbonate 25, anion gap of 11, BUN 9, creatinine 1.1, estimated GFR was 71 mL per minute. His glucose 108, calcium was 8.5. Total bilirubin, AST, ALT, alkaline phosphatase were normal. His most recent serum lipase was 223. His most recent prothrombin time was 18.3, INR 1.6. FINAL DISCHARGE DIAGNOSES: 1. Gallstone pancreatitis that has resolved. 2. Chronic cholecystitis/biliary dyskinesia, status post laparoscopic cholecystectomy for prolonged prothrombin time and found to be on further investigation to severe vitamin K deficiency. DISCHARGE INSTRUCTIONS: The patient was discharged with 10 mg of vitamin K daily for 7 days and advised to follow with his primary care physician to repeat his prothrombin time and INR in 1 week's time. MITA YEE MD DR: CAROLA/geno JOB#: [id number] / [id number]
--- NOTE | 2020-04-03 12:07 | PATHOLOGY ---
[facility] Accession Number: [id number] . 01 Material submitted: . gallbladder - GALLBLADDER . 02 Diagnosis: Gallbladder, excision: - Mild chronic cholecystitis; negative for malignancy. - Cholesterolosis. - Lithiasis. (MLK:tosha; 04/02/2020) QMS 04/02/2020 1519 Local . 02 Electronically signed: . Danya Villa MD, Pathologist NPI- [id number] . 01 Gross description: . The specimen is received in formalin, labeled "Cheung, Maurilio, gallbladder" and consists of an intact green gallbladder measuring 6.9 x 3.2 x 2.9 cm. The margin is inked. Opening reveals green bile and multiple yellow granular calculi measuring up to 0.3 cm in diameter. The mucosa is green and granular with yellow streaking and a wall thickness of 0.1 cm. No lymph nodes or gross lesions are identified. [employer]er sections are submitted in A1. ([facility]; 04/01/2020) JFQ/JFQ 04/01/2020 1750 Local . 02 Pathologist provided ICD-10: K80.10, K82.4 . 02 CPT . 505097 Specimen Comment: A courtesy copy of this report has been sent to [phone] Specimen Comment: [id number], Specimen Comment: Report sent to ,DR YEE / DR SANZ Performed at: 01 [facility] [address], [place] [id number] MD Chito Hsieh MD Phone: [phone] Performed at: 02 [facility] [address] [place], [place] [id number] MD Yeison Dumont MD Phone: [phone]
== END 2020-04-02 15:45 | disposition home or self-care (01) | DRG 417 ==
LOC: 2 NORTH 18:40 → 4 SOUTHEST 03-31 16:47
PROVIDERS: ADMIT Internal Medicine; ATTEND Internal Medicine
PROC: 30233K1 Transfusion of Nonautologous Frozen Plasma into Peripheral Vein, Percutaneous Approach (ICD-10-PCS; 2020-03-31)
PROC: BF101ZZ Fluoroscopy of Bile Ducts using Low Osmolar Contrast (ICD-10-PCS; 2020-03-31)
PROC: 0FT44ZZ Resection of Gallbladder, Percutaneous Endoscopic Approach (ICD-10-PCS; principal; 2020-03-31 15:00)
DX: K85.10 Biliary acute pancreatitis without necrosis or infection (principal); E43 Unspecified severe protein-calorie malnutrition; K80.10 Calculus of gallbladder with chronic cholecystitis without obstruction; E78.5 Hyperlipidemia, unspecified; Z68.26 Body mass index [BMI] 26.0-26.9, adult; K21.9 Gastro-esophageal reflux disease without esophagitis; K44.9 Diaphragmatic hernia without obstruction or gangrene; K82.8 Other specified diseases of gallbladder; N40.0 Benign prostatic hyperplasia without lower urinary tract symptoms; Z82.49 Family history of ischemic heart disease and other diseases of the circulatory system; Z87.891 Personal history of nicotine dependence; Z20.828 Contact with and (suspected) exposure to other viral communicable diseases
CPT/HCPCS: 36415; 74300; 80048; 80053; 80076; 82150; 83690; 85014; 85018; 85025; 85027; 85049; 85230; 85347; 85379; 85384; 85610; 85730; 86705; 86709; 86803; 86850; 86900; 86901; 86927; 87340; 88304; 93970; A7015; C9113; J0780; J1100; J1170; J2270; J2405; J2543; J2704; J2710; J3010; J3430; J3480; J3490; J7030; P9017; Q9967; G0378

== ENCOUNTER → 2020-04-16 | Outpatient (CLI) | payer OTHER ==
[2020-04-02 15:41] VITALS: BP 118/73
[~2020-04-16] MED LIST: OXYC1TAB15 PO; PHYT5TAB PO
[2020-04-16 14:16] LABS: BASO # 0.1 x10^3/uL (0.0-0.2); BASO % 1 % (0-3); EOS # 0.2 x10^3/uL (0.0-0.7); EOS % 4 % (0-3); HEMATOCRIT 38.7 % (39.0-53.0); LYMPH # 1.2 x10^3/uL (1.0-4.8); LYMPH % 18 % (24-48); MEAN CORPUSCULAR HEMOGLOBIN 31 pg (25-35); MEAN CORPUSCULAR HGB CONC 34 g/dL (31-37); MEAN CORPUSCULAR VOLUME 93 fL (79-100); MONO # 0.7 x10^3/uL (0.0-1.1); MONO % 10 % (0-9); NEUT # 4.5 x10^3/uL (1.8-7.7); NEUT % 67 % (31-73); PLATELET COUNT 271 x10^3/uL (140-400); RED BLOOD COUNT 4.16 x10^6/uL (4.30-5.70); RED CELL DISTRIBUTION WIDTH 14.3 % (11.5-14.5); WHITE BLOOD COUNT 6.7 x10^3/uL (4.0-11.0)
[2020-04-16 14:27] LABS: PROTHROMBIN TIME PATIENT 15.8 SEC (11.7-14.0)
[2020-04-18 09:12] LABS: FACTOR IX ASSAY SEE SEPARATE REPORT; FACTOR VII ASSAY SEE SEPARATE REPORT
== END ==
LOC: ONCLAB 13:28
PROVIDERS: ATTEND Internal Medicine Hematology & Oncology
DX: R79.1 Abnormal coagulation profile (principal)
CPT/HCPCS: 36415; 85025; 85230; 85250; 85610; 85730

== ENCOUNTER → 2020-06-15 | Outpatient (CLI) | payer OTHER ==
[2020-06-15 13:28] LABS: PROTHROMBIN TIME PATIENT 16.5 SEC (11.7-14.0)
== END | disposition home or self-care (01) ==
LOC: ONCLAB 12:56
PROVIDERS: ATTEND Internal Medicine Hematology & Oncology
DX: R79.1 Abnormal coagulation profile (principal)
CPT/HCPCS: 36415; 85610